=== PATIENT | female | born 1990 | race Caucasian/White ===

== ENCOUNTER → 2018-06-11 09:59 | Outpatient (CLI) | payer OTHER, SELFPAY ==
[2018-06-11 10:37] LABS: Add Manual Diff / Slide Review NO; Basophils Percent Auto 0.4 % (0-2); Eosinophils Percent Auto 0.8 % (2-4); Hematocrit 41.3 % (36-46); Hemoglobin 14.2 g/dL (12.0-16.0); Lymphocytes Percent Auto 24.2 % (25-40); Mean Corpuscular HGB Conc 34.3 % (30-36); Mean Corpuscular Volume 87.5 fL (80-100); Monocytes Percent Auto 6.5 % (3-14); Neutrophils Absolute Auto 3900 /uL (3000-5900); Neutrophils Percent Auto 68.1 % (50-75); Platelet Count 263 X10^3/uL (150-400); Red Blood Cell Count 4.72 X10^6/uL (4.0-5.2); Red Cell Distribution Width 13.1 % (11.6-14.8); White Blood Cell Count 5.7 X10^3/uL (4.5-11.0)
[2018-06-11 11:05] LABS: Alanine Aminotransferase 21 IU/L (9-52); Albumin 4.7 g/dL (3.5-5.0); Albumin Globulin Ratio 1.6 (1.0-2.8); Alkaline Phosphatase 52 U/L (38-126); Aspartate Aminotransferase 17 IU/L (14-36); Bilirubin Total 0.5 mg/dL (0.2-1.3); Blood Urea Nitrogen 12 mg/dL (7-17); Calcium 10.2 mg/dL (8.4-10.2); Carbon Dioxide 29 mmol/L (22-32); Chloride 102 mmol/L (98-107); Estimated Glomerular Filt Rate > 60.0 mL/min (>60); Globulin 2.9 g/dL (1.7-4.1); Glucose 101 mg/dL (70-100); HEMOLYSIS < 15 (0-50); Potassium 4.9 mmol/L (3.4-5.1); Sodium 143 mmol/L (137-145); Total Protein 7.6 g/dL (6.3-8.2)
[2018-06-11 11:24] LABS: Free T3, Triiodothyronine Free 3.36 pg/mL (2.77-5.27); Free T4, Direct Thyroxine 1.06 ng/dL (0.78-2.19)
[2018-06-11 11:38] LABS: Thyroid Stimulating Hormone 2.97 uIU/mL (0.47-4.68)
== END ==
PROVIDERS: PCP Internal Medicine; Visit Provider Internal Medicine
DX: N97.9 Female infertility, unspecified (principal)
CPT/HCPCS: 36415; 80053; 84439; 84443; 84481; 85025

== ENCOUNTER → 2018-07-25 12:43 | Outpatient (CLI) | payer OTHER, SELFPAY ==
[2018-07-25 14:14] LABS: Semen 30 min. Liquification? Yes; Sperm Count 1 X10^6mL
[2018-07-25 14:55] LABS: % Recovery 12 %; Final Volume 0.5 mL
== END ==
PROVIDERS: PCP Internal Medicine; Visit Provider Obstetrics & Gynecology
DX: N97.9 Female infertility, unspecified (principal)
CPT/HCPCS: 89261

== ENCOUNTER → 2018-08-25 12:21 | Outpatient (CLI) | payer OTHER, SELFPAY ==
[2018-08-25 13:22] LABS: Initial Volume 3.5 mL; Semen 30 min. Liquification? YES
== END ==
PROVIDERS: PCP Internal Medicine; Visit Provider Obstetrics & Gynecology
DX: N97.0 Female infertility associated with anovulation (principal)
CPT/HCPCS: 58323

== ENCOUNTER → 2019-03-21 09:54 | Outpatient (CLI) | payer OTHER, SELFPAY ==
[2019-03-21 10:39] LABS: HCG Quantitative /Beta subunit 97.07 mIU/mL
== END ==
PROVIDERS: Visit Provider Obstetrics & Gynecology Reproductive Endocrinology
DX: Z32.00 Encounter for pregnancy test, result unknown (principal)
CPT/HCPCS: 36415; 84702

== ENCOUNTER → 2019-03-23 09:05 | Outpatient (CLI) | payer OTHER, SELFPAY ==
[2019-03-23 09:50] LABS: HCG Quantitative /Beta subunit 266.74 mIU/mL
== END ==
PROVIDERS: Visit Provider Obstetrics & Gynecology Reproductive Endocrinology
DX: Z32.01 Encounter for pregnancy test, result positive (principal)
CPT/HCPCS: 36415; 84702

== ENCOUNTER → 2019-04-21 16:21 | Outpatient (CLI) | payer OTHER, SELFPAY ==
[2019-04-21 17:40] LABS: Add Manual Diff / Slide Review NO; Basophils Absolute Auto 0 /uL (0-100); Basophils Percent Auto 0.5 % (0-2); Eosinophils Absolute Auto 200 /uL (0-450); Eosinophils Percent Auto 2.1 % (2-4); Hematocrit 39.3 % (36-46); Hemoglobin 13.3 g/dL (12.0-16.0); Lymphocytes Absolute Auto 1600 /uL (1100-4500); Mean Corpuscular HGB Conc 33.9 % (30-36); Mean Corpuscular Hemoglobin 29.8 PG (26-34); Monocytes Absolute Auto 500 /uL (0-900); Monocytes Percent Auto 5.1 % (3-14); Neutrophils Absolute Auto 8200 /uL (1500-7000); Neutrophils Percent Auto 77.3 % (50-75); Platelet Count 264 X10^3/uL (150-400); Red Blood Cell Count 4.46 X10^6/uL (4.0-5.2); Red Cell Distribution Width 13.5 % (11.6-14.8); White Blood Cell Count 10.6 X10^3/uL (4.5-11.0)
[2019-04-21 17:49] LABS: Appearance Urine UA CLEAR; Bilirubin Urine UA NEGATIVE (NEGATIVE); Color Urine UA YELLOW; Glucose Urine UA NEGATIVE (Negative); Ketones Urine UA NEGATIVE (NEGATIVE); Leukocyte Esterase Urine UA NEGATIVE (NEGATIVE); Nitrite Urine UA NEGATIVE (Negative); Occult Blood Urine UA NEGATIVE (Negative); Protein Urine UA NEGATIVE (Negative); Specific Gravity Urine UA >=1.030 (1.000-1.035); Urobilinogen Urine UA 0.2 E.U./dL (0.2); pH Urine UA 5.5 (4.5-8.0)
[2019-04-21 18:34] LABS: Hepatitis B Surface Antigen NEGATIVE s/c (NEGATIVE); Rubella Antibody IgG 26.4 IU/mL (>15)
[2019-04-21 18:53] LABS: HIV 1 and 2 Antibody NEGATIVE (NEGATIVE); Hep C Virus Ab w/Reflex Quant NEGATIVE s/c (NEGATIVE)
[2019-04-23 13:17] LABS: RPR Screen Nonreactive (Nonreactive)
== END ==
PROVIDERS: PCP Obstetrics & Gynecology; Visit Provider Obstetrics & Gynecology
DX: Z34.81 Encounter for supervision of other normal pregnancy, first trimester (principal)
CPT/HCPCS: 36415; 80055; 81003; 86703; 86787; 86803; 86850; 86900; 86901; 87086

== ENCOUNTER → 2019-07-13 09:42 | Outpatient (CLI) | payer OTHER, MEDICAID, SELFPAY ==
--- NOTE | 2019-07-13 | DI.US.S_ITS ---
PROCEDURE: US OB >= 14 WEEKS FETUS INDICATIONS: ANATOMY SCAN OUTSIDE/PRIOR DATING DATA: Last menstrual period (LMP): 02/21/19. LMP-based estimated date of delivery (BHANU): 11/28/19. First dating scan (date and location): 04/21/19. Estimated date of delivery (BHANU) from first dating scan: 11/28/19. TECHNIQUE: Real-time scanning was performed of the fetus, with image documentation and biometric measurements. Endovaginal scanning: No COMPARISON: [facility], , OB <= 14 WEEKS FETUS, 04/08/2019, 12:08. [facility], PELVIC COMPLETE, 02/07/2016, 21:18. [facility], , OB <= 14 WEEKS FETUS, 05/22/2019, 10:42. [facility], OB >= 14 WEEKS FETUS, 04/21/2019, 16:06. FINDINGS: General: A single living intrauterine gestation is present. Presentation: Variable. Placenta: Placental position is anterior, without previa. Amniotic fluid index: 15.2 cm, normal range is 5-24 cm. heart rate: 150 beats per minute. Maternal cervical canal: 3.5 cm long. Normal lower limit is 2.5 cm. biometrics: Biparietal diameter: 20 weeks 1 day Head circumference: 20 weeks 1 day Abdominal circumference: 19 weeks 5 days Femur length: 20 weeks 1 day Estimated gestational age from initial scan: 20 weeks 2 days Composite gestational age from present scan: 20 weeks 2 days Estimated weight and percentile: 321 g; 26 percentile Measurement variability for biometric dating: +/- 7 days from 14 weeks to 15 weeks 6 days gestation, +/- 10 days from 16 weeks to 21 weeks 6 days gestation, +/- 2 weeks from 22 weeks to 27 weeks 6 days gestation, +/- 3 weeks for 28 weeks gestation or later. weight reference: 4500 g or EFW >90/95% is considered macrosomia or large for gestational age. EFW <10% is small for gestational age. EFW 5% or less is considered intra-uterine growth restriction. Anatomic survey: Neuro: Ventricles are non-dilated at 7 mm. Cisterna magna is normal at 5 mm. Cerebellum is normal in size and morphology. Nuchal skin fold: Normal at 3 mm. Face: Nose and lips are normal. Orbits and facial profile not well-visualized. Spine: No ultrasound evidence for spina bifida. Heart: 4-chambered heart is present. Ventricular outflow tracts are not well evaluated on this exam. Diaphragm: Diaphragm is intact. Stomach: Left-sided stomach is present. Kidneys: No alison hydronephrosis. Normal is less than 5 mm in 2nd trimester, less than 7 mm in 3rd trimester. Cord: Orthotopic insertion of the umbilical cord. Bladder: Normal in size. Extremities: All 4 extremities identified. IMPRESSION: 1. Single intrauterine gestation with heart rate of 150 beats per minute. 2. Facial profile, orbits, and ventricular outflow tracts were not well-seen on this exam. Attention on followup exams recommended. Dictated by: Lyle Burnette [facility] Interpreted: Cipriano Hale MD on 07/13/2019 at 11:10 Approved by: Cipriano Hale M.D. on 07/13/2019 at 23:33
== END ==
PROVIDERS: PCP Midwife; Visit Provider Midwife
DX: Z34.82 Encounter for supervision of other normal pregnancy, second trimester (principal)
CPT/HCPCS: 76811

== ENCOUNTER → 2019-09-11 07:17 | Outpatient (CLI) | payer OTHER, MEDICAID, SELFPAY ==
--- NOTE | 2019-09-11 | DI.US.S_ITS ---
PROCEDURE: US OB FOLLOW UP INDICATIONS: Facial profile,orbits,ventricular outflow OUTSIDE/PRIOR DATING DATA: Last menstrual period (LMP): 02/21/19. LMP-based estimated date of delivery (BHANU): 11/28/19. First dating scan (date and location): 04/21/19. Estimated date of delivery (BHANU) from first dating scan: 11/28/19.. TECHNIQUE: Real-time scanning was performed of the fetus, with image documentation and biometric measurements. Endovaginal scanning: No COMPARISON: [facility], OB >= 14 WEEKS FETUS, 07/13/2019, 9:58. FINDINGS: General: A single living intrauterine gestation is present. Presentation: Breech. Placenta: Placental position is anterior, without previa. Amniotic fluid index: 12.4 cm, normal range is 5-24 cm. heart rate: 137 beats per minute. Maternal cervical canal: 3.3 cm long. Normal lower limit is 2.5 cm. Estimated gestational age from initial scan: 28 weeks 6 days Normal appearance of the face, profile, 4 chamber heart and cardiac outflow tracts. IMPRESSION: 1. Single living IUP redemonstrated and today's exam demonstrating normal appearance of the face, profile, 4 chamber heart and cardiac outflow tracts. Dictated by: Lyle RIOS Interpreted: Shanice Mcnally MD on 09/11/2019 at 10:37 Approved by: Shanice Mcnally M.D. on 09/11/2019 at 13:52
== END ==
PROVIDERS: PCP Midwife; Visit Provider Midwife
DX: Z36.2 Encounter for other antenatal screening follow-up (principal); Z3A.28 28 weeks gestation of pregnancy
CPT/HCPCS: 76816

== ENCOUNTER 2019-10-27 12:47 | Outpatient (CLI) | payer OTHER, MEDICAID, SELFPAY ==
--- NOTE | 2019-10-27 13:08 | PM.OBTRLD ---
Visit Information Visit Information Date of evaluation: 10/27/19 On-call OB Provider: Chikis Guerrier Reason for Evaluation: Yes other Comments/Additional reasons for admission: 29yo at 35w3d who presented with vaginal bleeding. Pt reports that this afternoon after using the restroom she noticed significant dark red blood on the tissue, and in the toilet. There was some mucus and tissue intermixed with it. She did not have any bleeding on her panty liner at presentation, and no blood after urinating here. She denies any abdominal pain/cramping/contractions. No LOF. Her placenta is anterior without any previa. PFSH Social History marital status: Smoking Status: Never smoker alcohol intake: current substance use type: does not use Exam Narrative Exam Narrative: Gen: NAD, sitting comfortably in bed, appears well Abd: soft, gravid, nontender, nondistended Evaluation Evaluation Baseline heart rate: 145 Variability: Moderate (11-25) monitor accelerations: Present monitor decelerations: Absent Category of Tracing: I Cervical dilation (cm): 1 Cervical effacement (%): 20 station: -3 Diagnosis, Plan/Disposition Final Diagnosis (1) Vaginal bleeding: Current Visit: No Status: Acute Plan/Disposition Plan: No persistent bleeding here. FHT reassuring. Most likely due to old blood. Recommend continued monitoring at home. If recurrent bleeding necessitating pad, pt to return for repeat evaluation and would obtain u/s at that point. OB Disposition: home
[2019-10-27 13:43] LABS: Appearance Urine UA CLEAR; Bilirubin Urine UA NEGATIVE (NEGATIVE); Color Urine UA YELLOW; Glucose Urine UA NEGATIVE (Negative); Ketones Urine UA NEGATIVE (NEGATIVE); Leukocyte Esterase Urine UA NEGATIVE (NEGATIVE); Nitrite Urine UA NEGATIVE (Negative); Occult Blood Urine UA 3+ (Negative); Protein Urine UA NEGATIVE (Negative); Specific Gravity Urine UA <=1.005 (1.000-1.035); Urobilinogen Urine UA 0.2 E.U./dL (0.2)
[2019-10-27 13:44] LABS: pH Urine UA 6.5 (4.5-8.0)
[2019-10-27 13:49] LABS: RBC Urine 10-30/HPF (0-5/HPF); Squamous Epithelial Cell Urine 10-30 /HPF (0-5/HPF); WBC Urine 0-1/HPF (0-5/HPF)
[2019-10-27 13:50] LABS: Bacteria Urine Moderate (10-30); Culture Indicated Urine Cult Not Indicated
== END 2019-10-27 13:58 | disposition home or self-care (01) ==
LOC: LABOR 13:27 → OB 10-28 13:31
PROVIDERS: PCP Midwife; Visit Provider Family Medicine
DX: O46.93 Antepartum hemorrhage, unspecified, third trimester (principal); Z3A.35 35 weeks gestation of pregnancy
CPT/HCPCS: 59025; 81001; G0378; G0379

== ENCOUNTER 2019-10-30 10:41 | Inpatient (IN) | payer OTHER, MEDICAID, SELFPAY ==
--- NOTE | 2019-10-30 10:44 | DI.US.S_ITS ---
PROCEDURE: US OB LIMITED INDICATIONS: ACTIVE BLEEDING OUTSIDE/PRIOR DATING DATA: Last menstrual period (LMP): 02/21/19. LMP-based estimated date of delivery (BHANU): 11/28/19. First dating scan (date and location): 04/21/19. Estimated date of delivery (BHANU) from first dating scan: 11/29/19. TECHNIQUE: Real-time scanning was performed of the fetus, with image documentation and biometric measurements. Endovaginal scanning: Not performed COMPARISON: [facility], OB FOLLOW UP, 09/11/2019, 7:33. [facility], OB >= 14 WEEKS FETUS, 07/13/2019, 9:58. [facility] OB <= 14 WEEKS FETUS, 05/22/2019, 10:42. [facility], OB >= 14 WEEKS FETUS, 04/21/2019, 16:06. [facility], OB <= 14 WEEKS FETUS, 04/08/2019, 12:08. FINDINGS: General: A single living intrauterine gestation is present. Presentation: Vertex. Placenta: Placental position is anterior, without previa. Amniotic fluid index: 13.5 cm, normal range is 5-24 cm. heart rate: 168 beats per minute. Estimated gestational age from initial scan: 35 weeks 6 days Other: Not applicable. IMPRESSION: Single living intrauterine fetus in vertex presentation. Normal GABRIELLA Grossly unremarkable appearance of the placenta Dictated by: Steve Vargas M.D. on 10/30/2019 at 17:40 Approved by: Steve Vargas M.D. on 10/30/2019 at 17:43
--- NOTE | 2019-10-30 13:33 | PM.OBHP.1 ---
OB HPI Date/Time Date of admission: 10/30/19 Date Patient Seen: 10/30/19 Time Patient Seen: 12:45 History of Present Condition Chief complaint: vaginal bleeding : 2 Para: 1 Estimated Date of Delivery: 11/28/19 Estimated Gestational Age (weeks): 35w6d Narrative: Kenna Urbina is a 29 year old at 35 weeks and 6 days gestation with vaginal bleeding with clots this morning. She was seen in triage 3 days ago for vaginal bleeding which resolved prior to arrival in the center. Today shortly after waking she had a gush of blood down her legs then 3 golf ball size clots. No associated pain or contractions. She came to the center shortly after this. Good movement. has been managed by line rider Stephany Fuller and uncomplicated to date with normal ultrasounds and labs. is the product of IVF. History of Present care: good care, initiated at week # (6) and number of visits (11) Dating criteria: LMP confirmed by 1st trimester US (IVF transfer) Ultrasounds: normal 1st trimester US and normal mid trimester US Obstetrical complications: none Medical complications: none Preadmission Labs Blood type: A (+) positive -: Antibody screen: negative, GBS status: positive, HBsAG: negative, HIV: negative and RPR/VDLR: negative -: Chlamydia screen: not detected and Gonorrhea screen: not detected -: Rubella: immune and Varicella: immune HCT: 39.3 HCAB: negative PAP: Normal Cell-free DNA: Normal XY 1 hr GTT: 86 Prior (ies) History: Spontaneous vaginal delivery at 39 weeks and 2 days to a 7 lb 9 oz male. Delivered at the [facility] with Stephany Fuller. Evaluation Evaluation Baseline heart rate: 140 Variability: Moderate (11-25) monitor accelerations: Present monitor decelerations: Absent Cervical dilation (cm): 1 Cervical effacement (%): 50 station: -3 [facility] Medical History History of recurrent ear infection (Chronic ~1991) Surgical History Anesthesia (Resolved) History of appendectomy (Resolved ~11/2002) History of myringotomy (Resolved ~12/1992) Plantar warts (Resolved ~2006) [place] teeth removed (Resolved ~10/2011) Family History Mother Fibromyalgia Anxiety and depression Grandfather Heart disease Hypertension Hyperlipidemia Anxiety Stroke Grandmother Fibromyalgia Diabetes mellitus Grandfather Diabetes mellitus Heart disease Hyperlipidemia Grandmother Hyperlipidemia Social History marital status: Smoking Status: Never smoker alcohol intake: current substance use type: does not use Meds Home Medications and Allergies Home Medications Medication Instructions Recorded Confirmed Type prenat.vits,cami,[id number] 1 tab PO DAILY 04/08/19 10/30/19 History Allergies Allergy/AdvReac Type Severity Reaction Status Date / Time No Known Drug Allergies Allergy Verified 04/08/19 11:30 Review of Systems Constitutional Constitutional: Denies fever(s) Respiratory Respiratory: Denies cough Gastrointestinal Gastrointestinal: Denies abdominal pain, Denies nausea and Denies vomiting Genitourinary Genitourinary: Reports as per HPI Exam Vital Signs (past 8 hours): Temp 36.4 BP 134/86 P 97 Const General: healthy appearing and comfortable HENMT Head: normal to inspection Ears: hearing grossly normal bilaterally Nose: external nose normal Face and sinus: normal facial exam Mouth: oral mucosae normal Eyes General: appearance normal, both eyes and all related structures Neck Neck: normal visual inspection Resp Effort & Inspection: normal respiratory effort Auscultation: clear to auscultation bilaterally Cardio Rate: regular rate Rhythm: regular rhythm Heart Sounds: no murmurs GI Other: Gravid External Female Exam: external appearance normal Speculum Exam - Vagina: vaginal bleeding (Small amount of dark blood in vagina) Speculum Exam - Cervix: cervical os open OB/External & Speculum: cervical os open and vaginal bleeding (Small amount of dark blood in vagina) Manual OB Exam: dilated 1, effaced 50% and station high Presentation: vertex Estimated Weight (lbs): 6 Skin General: no rashes or lesions noted Extrem General: normal to inspection and edema (1+ bilaterally) Objective Labs Result Diagrams: 10/30/19 13:40 Assessment and Plan Assessment and Plan Assessment and Plan narrative: 29 year old at 35+6 weeks gestation with bright red vaginal bleeding with clots this morning. Bleeding is scant now and FHT reactive. No obvious source of bleeding on exam or US so presumed placental abruption. This is her second episode of bleeding this week. She was seen in triage 3 days ago, monitoring then sent home since bleeding stopped. Will admit for observation, CBC, type and screen and bethamethasone for lung maturity. Discussed the possibility of an emergency with patient should bleeding increase significantly or FHT are not reassuring.
[2019-10-30 14:05] LABS: Add Manual Diff / Slide Review NO; Basophils Absolute Auto 0 /uL (0-100); Basophils Percent Auto 0.2 % (0-2); Eosinophils Absolute Auto 0 /uL (0-450); Eosinophils Percent Auto 0.2 % (2-4); Hematocrit 35.5 % (36-46); Hemoglobin 12.5 g/dL (12.0-16.0); Lymphocytes Absolute Auto 1100 /uL (1100-4500); Mean Corpuscular HGB Conc 35.3 % (30-36); Mean Corpuscular Hemoglobin 29.9 PG (26-34); Mean Corpuscular Volume 84.8 fL (80-100); Monocytes Absolute Auto 400 /uL (0-900); Monocytes Percent Auto 4.5 % (3-14); Neutrophils Absolute Auto 6500 /uL (1500-7000); Neutrophils Percent Auto 81.1 % (50-75); Platelet Count 238 X10^3/uL (150-400); Red Blood Cell Count 4.18 X10^6/uL (4.0-5.2); Red Cell Distribution Width 13.9 % (11.6-14.8); White Blood Cell Count 8.1 X10^3/uL (4.5-11.0)
[2019-10-30] MEDS: BETAMETHASONE 30 MG/5 ML MDV 12 MG IM (14:22)
[2019-10-30 15:50] LABS: Strep Grp B PCR POS for Grp B Strep
[2019-10-31 07:31] VITALS: BP 120/74; PULSE 88; RESP 16; TEMP 36.8
--- NOTE | 2019-10-31 08:01 | PM.OBPNLAB ---
Date/Time Date Patient Seen: 10/31/19 Time Patient Seen: 08:01 Pain Control Comments: Patient continued to have small amounts of pink and sometimes red discharge with wiping only overnight. No clots or alison bright red blood. She has felt crampy and some contractions, reminds her of early labor with her first. Otherwise no complaints other than little sleep overnight. Status Heart Rate Baseline: 120 Monitor Accelerations: Present Monitor Decelerations: Absent Monitor Variability: Moderate Assessment and Plan Comments: Continue observation for presumed partial abruption. FHT reassuring. Bleeding has slowed significantly but has not stopped. Patient will receive her second dose of betamethsone night. Will monitor at least another night for ongoing bleeding.
[2019-10-31] MEDS: BETAMETHASONE 30 MG/5 ML MDV 12 MG IM (14:14)
[2019-10-31] MEDS: CALCIUM CARBONATE 500 MG TAB PO (23:17)
--- NOTE | 2019-11-01 06:57 | P.DS_ITS ---
History of Present Illness History of Present Illness Date Patient Seen: 11/01/19 Time Patient Seen: 06:57 Chief complaint: Vaginal bleeding Narrative: Kenna Urbina is a 29 year old at 36 weeks and 1 days gestation with vaginal bleeding with clots the morning of admission. She was seen in triage 3 days prior to admission with vaginal bleeding which resolved before she arrived in the center. Shortly after waking the day of admission she had a gush of blood down her legs then 3 golf ball size clots. No associated pain or contractions. Good movement. has been managed by artillery meteorological man Stephany Fuller and uncomplicated to date with normal ultrasounds and labs. is the product of IVF. Denies any h/o drug use. Discharge Providers Provider Date of admission: 10/30/19 10:41 Discharge Date: 11/01/19 Primary care physician: Stephany Fuller LM Discharge provider: Yenifer Valentino DO Summary Hospital Course Discharge Diagnosis: Vaginal bleeding in 36 weeks of Placental abruption Hospital Course: Patient was admitted for observation of bleeding which was light through her stay. At most she had slight light bleeding with wiping only. US did not show placenta previa or abruption though no other source of bleeding so presumed small abruption. She reported mild intermittent contractions and denied abdominal pain. FHT were monitored throughout her hospitalization (approximately 48 hours) and reactive without any sign of distress. She received two doses of betamethsone for lung maturity given 36 weeks gestation. She will follow up in clinic with Dr. Valentino in two days. Discussed the importance of pelvic rest, bed rest and kick counts. She is well aware to return to the center for increased bleeding, pain, leaking of fluid or regular contractions and to call with any concerns as well. Status at Discharge Functional status at discharge: independent ambulation Overall status at discharge: patient is back to baseline Time Spent with Patient Time spent: Less than 30 minutes Exam Vital Signs (past 8 hours): Temp 36.4 BP 97/56 HR 82 General: Well-appearing, NAD, comfortable CV: RRR, no murmur Lungs: CTAB Abdomen: Gravid, nontender Ext: Trace edema bilaterally Objective Labs Result Diagrams: 10/30/19 13:40 Discharge Plan Discharge Plan Patient Disposition: Home Discharge orders & Medications Prescriptions: Continued prenat.vits,cami,[id number] tablet 1 tab PO DAILY RF: 0 Follow up/Referrals: Stephany Fuller, DAHIANA [Primary Care Provider] - Yenifer Valentino DO [Physician] - 11/03/19 12:00 pm (Clinic will call you to schedule with Dr. Valentino) Visit Report/Discharge Packet Visit Report Forms: Patient Portal/API, Stroke Signs & Symptoms Discharge Data Primary Care Provider: Stephany Fuller Attending Provider: Yenifer Valentino Admit Date/Time: 10/30/19 10:41
[2019-11-01] MEDS: DOCUSATE 250 MG CAPSULE PO (10:00)
== END 2019-11-01 10:14 | disposition home or self-care (01) | DRG 833 ==
PROVIDERS: Admitting Provider Family Medicine; PCP Midwife; Visit Provider Family Medicine
DX: O45.93 Premature separation of placenta, unspecified, third trimester (principal); Z3A.36 36 weeks gestation of pregnancy; O99.820 Streptococcus B carrier state complicating pregnancy
CPT/HCPCS: 36415; 76815; 85025; 86850; 86900; 86901; 87653; 99222; 99232; 99238; G0378; G0379; J0702

== ENCOUNTER 2019-11-06 10:03 | Outpatient (CLI) | payer OTHER, MEDICAID, SELFPAY ==
--- NOTE | 2019-11-06 11:06 | P.TNLD_ITS ---
Visit Information Visit Information Date of evaluation: 11/06/19 Primary OB Provider: Yenifer Valentino Reason for Evaluation: Yes non-stress test non-stress test reason: other (Vaginal bleeding, not for the past several days) Vital Signs Vital Signs: T 36.3 BP 125/78 HR 100 PFSH Medical History History of recurrent ear infection (Chronic ~1991) Surgical History Anesthesia (Resolved) History of appendectomy (Resolved ~11/2002) History of myringotomy (Resolved ~12/1992) Plantar warts (Resolved ~2006) [place] teeth removed (Resolved ~10/2011) Family History Mother Fibromyalgia Anxiety and depression Grandfather Heart disease Hypertension Hyperlipidemia Anxiety Stroke Grandmother Fibromyalgia Diabetes mellitus Grandfather Diabetes mellitus Heart disease Hyperlipidemia Grandmother Hyperlipidemia Social History marital status: Smoking Status: Never smoker alcohol intake: current substance use type: does not use Evaluation Evaluation Baseline heart rate: 150 Variability: Moderate (11-25) monitor accelerations: Present monitor decelerations: Absent Contraction Frequency (minutes): 0 Diagnosis, Plan/Disposition Plan/Disposition Plan: Reactive NST, no recurrence of vaginal bleeding. Follow up as scheduled next week. OB Disposition: home
== END 2019-11-06 11:24 | disposition home or self-care (01) ==
LOC: LABOR 11:06 → OB 11-13 11:15
PROVIDERS: PCP Family Medicine; Visit Provider Family Medicine
DX: O46.93 Antepartum hemorrhage, unspecified, third trimester (principal); Z3A.36 36 weeks gestation of pregnancy
CPT/HCPCS: 59025; G0378; G0379

== ENCOUNTER 2019-11-13 10:05 | Outpatient (CLI) | payer OTHER, MEDICAID, SELFPAY ==
--- NOTE | 2019-11-13 10:46 | PM.OBTRLD ---
Visit Information Visit Information Date of evaluation: 11/13/19 Primary OB Provider: Yenifer Valentino Reason for Evaluation: Yes non-stress test Comments/Additional reasons for admission: Vaginal bleeding at 36 weeks, has not recurred. Vital Signs Vital Signs: T 35.9 BP 124/82 P 103 PFSH Social History marital status: Smoking Status: Never smoker alcohol intake: current substance use type: does not use Evaluation Evaluation Baseline heart rate: 155 Variability: Moderate (11-25) monitor accelerations: Present monitor decelerations: Absent Category of Tracing: I Diagnosis, Plan/Disposition Final Diagnosis (1) Vaginal bleeding: Current Visit: No Status: Acute (2) 37 weeks gestation of : Current Visit: Yes Status: Acute Plan/Disposition Plan: No recurrence of vaginal bleeding. NST reactive. Follow up as scheduled next week. OB Disposition: home
== END 2019-11-13 10:50 | disposition home or self-care (01) ==
LOC: LABOR 11:27 → OB 11-16 13:22
PROVIDERS: PCP Family Medicine; Visit Provider Family Medicine
DX: O46.93 Antepartum hemorrhage, unspecified, third trimester (principal); Z3A.37 37 weeks gestation of pregnancy
CPT/HCPCS: 59025; G0378; G0379

== ENCOUNTER 2019-11-24 07:08 | Inpatient (IN) | payer OTHER, MEDICAID, SELFPAY ==
[2019-11-24 08:22] LABS: Add Manual Diff / Slide Review NO; Basophils Absolute Auto 0 /uL (0-100); Basophils Percent Auto 0.2 % (0-2); Eosinophils Absolute Auto 100 /uL (0-450); Eosinophils Percent Auto 0.8 % (2-4); Hematocrit 34.6 % (36-46); Lymphocytes Absolute Auto 1200 /uL (1100-4500); Lymphocytes Percent Auto 14.6 % (25-40); Mean Corpuscular HGB Conc 34.6 % (30-36); Mean Corpuscular Hemoglobin 29.5 PG (26-34); Mean Corpuscular Volume 85.2 fL (80-100); Monocytes Absolute Auto 600 /uL (0-900); Monocytes Percent Auto 7.6 % (3-14); Neutrophils Absolute Auto 6300 /uL (1500-7000); Neutrophils Percent Auto 76.8 % (50-75); Platelet Count 230 X10^3/uL (150-400); Red Blood Cell Count 4.06 X10^6/uL (4.0-5.2); Red Cell Distribution Width 14.4 % (11.6-14.8); White Blood Cell Count 8.2 X10^3/uL (4.5-11.0)
--- NOTE | 2019-11-24 08:24 | PM.OBHP.1 ---
OB HPI Date/Time Date of admission: 11/24/19 Date Patient Seen: 11/24/19 Time Patient Seen: 08:15 History of Present Condition Chief complaint: INDUCTION : 2 Para: 1 Estimated Date of Delivery: 11/28/19 Estimated Gestational Age (weeks): 39w3d Narrative: Kenna Urbina is a 29 year old at 39 weeks and 3 days here for induction of labor due to vaginal bleeding which began at 35 weeks. She was admitted and monitored for over 48 hours due to vaginal bleeding and received steroids for lung maturity. Bleeding stabilized and did not recur so she was discharged home. Bleeding felt to be due to partial abruption as no other source was found. Ultrasound and nonstress testing was reassuring prior to discharge. She has been followed closely in the clinic without recurrence of bleeding. She saw equal employment opportunity officer Stephany Fuller for the until the vaginal bleeding occurred, at which point she transferred care so she could deliver in the hospital. is the product of IVF though otherwise has been uncomplicated with normal labs and ultrasounds. Indications Indication for induction OB: other (Vaginal bleeding antepartum) History of Present care: good care, initiated at week # (6), number of visits (14) and pounds weight gain Dating criteria: LMP confirmed by 1st trimester US (IVF transfer) Ultrasounds: normal 1st trimester US and normal mid trimester US Obstetrical complications: other (Bleeding at 35 weeks, presumed partial abruption) Medical complications: none Preadmission Labs Blood type: A (+) positive -: Antibody screen: negative, GBS status: positive, HBsAG: negative, HIV: negative and RPR/VDLR: negative -: Chlamydia screen: not detected and Gonorrhea screen: not detected -: Rubella: immune and Varicella: immune HCT: 39.3 HCAB: negative PAP: Normal Cell-free DNA: Normal XY 1 hr GTT: 86 Prior (ies) History: Spontaneous vaginal delivery at 39 weeks and 2 days to a 7 lb 9 oz male. Delivered at the [facility] with Stephany Fuller. Evaluation Evaluation Baseline heart rate: 140 Variability: Moderate (11-25) monitor accelerations: Present monitor decelerations: Absent Uterine Contraction Intensity: Mild Cervical dilation (cm): 3 Cervical effacement (%): 60 station: -2 Laboratory results: Laboratory Tests 11/24/19 08:00 WBC 8.2 RBC 4.06 Hgb 12.0 Hct 34.6 L MCV 85.2 MCH 29.5 MCHC 34.6 RDW 14.4 Plt Count 230 Neut % (Auto) 76.8 H Lymph % (Auto) 14.6 L [place] % (Auto) 7.6 Eos % (Auto) 0.8 L Baso % (Auto) 0.2 Neut # (Auto) 6300 Lymph # (Auto) 1200 [place] # (Auto) 600 Eos # (Auto) 100 Baso # (Auto) 0 PFSH Medical History History of recurrent ear infection (Chronic ~1991) Surgical History Anesthesia (Resolved) History of appendectomy (Resolved ~11/2002) History of myringotomy (Resolved ~12/1992) Plantar warts (Resolved ~2006) [place] teeth removed (Resolved ~10/2011) Family History Mother Fibromyalgia Anxiety and depression Grandfather Heart disease Hypertension Hyperlipidemia Anxiety Stroke Grandmother Fibromyalgia Diabetes mellitus Grandfather Diabetes mellitus Heart disease Hyperlipidemia Grandmother Hyperlipidemia Social History marital status: Smoking Status: Never smoker alcohol intake: current substance use type: does not use Meds Home Medications and Allergies Home Medications Medication Instructions Recorded Confirmed Type prenat.vits,cami,hga-[id number]-[id number] 1 tab PO DAILY 04/08/19 11/16/19 History Allergies Allergy/AdvReac Type Severity Reaction Status Date / Time No Known Drug Allergies Allergy Verified 11/16/19 11:46 Review of Systems Constitutional Constitutional: Denies fatigue and Denies fever(s) Cardiovascular Cardiovascular: Denies shortness of breath Respiratory Respiratory: Denies cough and Denies dyspnea Gastrointestinal Gastrointestinal: Denies abdominal pain and Denies change in bowel habits Genitourinary Genitourinary: Denies vaginal discharge, Denies vaginal odor and Denies pelvic pain Endocrine Endocrine: Denies fatigue Exam Vital Signs (past 8 hours): Blood pressure 135/84 heart rate 90 Const General: healthy appearing and comfortable [facility] Head: normal to inspection Ears: hearing grossly normal bilaterally Nose: external nose normal Face and sinus: normal facial exam Mouth: oral mucosae normal Eyes General: appearance normal, both eyes and all related structures Neck Neck: normal visual inspection Resp Effort & Inspection: normal respiratory effort Auscultation: clear to auscultation bilaterally Cardio Rate: regular rate Rhythm: regular rhythm Heart Sounds: no murmurs GI Other: Gravid External Female Exam: external appearance normal Manual OB Exam: dilated 3, effaced (60) and station -2 Presentation: vertex Estimated Weight (lbs): 7 Back/Spine/Pelvis Back: normal to inspection Skin General: no rashes or lesions noted Extrem General: normal to inspection and edema (1+ bilateral) Objective Labs Result Diagrams: 11/24/19 08:00 Labs: Laboratory Results - last 24 hr 11/24/19 08:00 WBC 8.2 RBC 4.06 Hgb 12.0 Hct 34.6 L MCV 85.2 MCH 29.5 MCHC 34.6 RDW 14.4 Plt Count 230 Neut % (Auto) 76.8 H Lymph % (Auto) 14.6 L [place] % (Auto) 7.6 Eos % (Auto) 0.8 L Baso % (Auto) 0.2 Neut # (Auto) 6300 Lymph # (Auto) 1200 [place] # (Auto) 600 Eos # (Auto) 100 Baso # (Auto) 0 Assessment and Plan Assessment and Plan Assessment and Plan narrative: 29-year-old at 39 weeks and 3 days gestation here for induction due to vaginal bleeding which began at 35 weeks. She received betamethasone for lung maturity and was monitored in the center for over 48 hours with reassuring heart tones without recurrence of bleeding. She has been followed closely over the last 3 weeks and requests induction due to high anxiety about vaginal bleeding. Lacy score of 7 today. Plan Pitocin per protocol Penicillin for GBS prophylaxis Nitrous oxide per protocol if desires, patient would like to avoid an epidural Anticipate
[2019-11-24] MEDS: OXYTOCIN PREMIX 30 UNIT/500 ML PLAST..BAG IV (08:37)
[2019-11-24] MEDS: LACTATED RINGERS 1,000 ML 100 ML IV (08:38)
[2019-11-24] MEDS: PENICILLIN G POTASSIUM 5,000,000 UNIT in DEXTROSE 5% IN WATER 250 ML IV (08:39)
[2019-11-24 10:17] VITALS: BP 128/65
[2019-11-24] MEDS: PENICILLIN G POTASSIUM 3,000,000 UNIT/50 ML FROZ.PIGGY 100 UNIT IV ×2 (12:36→16:28)
--- NOTE | 2019-11-24 17:08 | PM.OBPNLAB ---
Date/Time Date Patient Seen: 11/24/19 Time Patient Seen: 17:08 Pain Control Pain control: tolerating well Comments: Patient rates contraction pain as 6/10. Coping well. Pelvic Exam Dilation (cm): 4 Effacement (%): 75 station: -2 Amniotic membrane status: Ruptured (AROM clear fluid) Contractions Pitocin rate (mU/min): 23 Contraction frequency (min): 3 Contraction intensity: Moderate Status status: Category ll Heart Rate Baseline: 140 Monitor Accelerations: Present Monitor Decelerations: Variable (intermittent) Monitor Variability: Moderate Assessment and Plan Assessment: induction ongoing Plan: continuous present management Comments: Patient getting more uncomfortable. AROM with clear fluid. Continue pitocin. Anticipate .
--- NOTE | 2019-11-24 20:01 | PM.OBPRVD ---
Labor & Delivery Delivery date: 11/24/19 Induction method: per pitocin protocol Delivery augmentation: rupture of membranes Delivery monitor: external uterine Route of delivery: L&D Laceration Description: Vaginal - 2nd Degree Estimated blood loss (mL): 300 Anesthesia type: None Narrative: Patient is a 29-year-old G2 now P2 at 39 weeks in 3 days who gave on 11/24/19 at 19:31. BHANU: 11/28/19 Hospital problems: 39 weeks of GBS positive Patient was admitted and started on Pitocin protocol for induction for vaginal bleeding antepartum. Active labor began at 4:00 p.m.. Artificial rupture of membranes at 4:55 p.m. with clear fluid. Patient became very painful and difficult to monitor so Pitocin was shut off. Patient continued to progress spontaneously with reassuring heart tones. Patient briefly tried nitrous oxide for pain control but did not tolerate it. She was complete at 7:21 p.m. and delivered a vigorous male at 7:31 p.m.. was vertex and OA. He was immediately placed on mother's abdomen. Cord was clamped and cut after 1 minute delay. Apgars were 8 and 9. Cord was found to have a true knot. Placenta delivered at 19:37 after active management and appeared intact with a three-vessel cord. Pitocin given after delivery of placenta. A short second-degree vaginal laceration was repaired in the usual fashion with 4 0 Vicryl. Hemostasis achieved. Fundus firm at umbilicus after delivery. EBL 300 mL Needle and sponge counts were correct. The vagina was inspected and no items were left in situ. Patient was doing well with Rodríguez, her and at bedside. [place] Baby 1: gender: Male Presentation: vertex Placenta delivery description: Spontaneous cord vessel description: True Knot score (1 min): 8 score (5 min): 9
[2019-11-25 07:10] LABS: Hematocrit 26.1 % (36-46); Hemoglobin 9.1 g/dL (12.0-16.0)
[2019-11-25] MEDS: PRENATAL VIT,CALC/IRON/FOLIC 1 TABLET 1 TAB PO (09:22)
[2019-11-25] MEDS: DOCUSATE 100 MG CAPSULE PO (09:22)
[2019-11-25] MEDS: IBUPROFEN 600 MG TABLET PO ×2 (09:22→16:25)
--- NOTE | 2019-11-25 10:05 | PM.OBDS.1 ---
Discharge Providers Provider Date of admission: 11/24/19 07:08 Discharge Date: 11/25/19 Primary care physician: Yenifer Valentino DO Consults: 11/25/19 20:00 Consult to Traction Power Engineer Routine Comment: Discharge provider: Yenifer Valentino DO Summary Hospital Course Date Patient Seen: 11/25/19 Time Patient Seen: 09:45 Procedures: Spontaneous vaginal delivery Hospital Course: Patient is a 29-year-old G2 now P2 after spontaneous vaginal delivery at 39 weeks and 3 days gestation on 11/24/19. Patient was brought in for Pitocin induction due to vaginal bleeding at 35 weeks which resolved. She progressed well with Pitocin and artificial rupture of membranes and received adequate GBS prophylaxis. She went on to deliver a vigorous male infant. A short second-degree vaginal laceration was repaired in the usual fashion. course uncomplicated. Breast-feeding going well. Patient was ambulating, eating, voiding and passing flatus. Bleeding was heavier after delivery and lightening up the time of discharge. H&H noted to be low though not low enough for blood transfusion. Patient will discharge with iron supplementation. Patient advised to call for fevers, bleeding through more than a pad an hour or severe pain. Follow-up for 6 week check or sooner if needed. Peripartum Data Infant Delivery Method: Natural Vaginal Laceration description: Vaginal - 2nd Degree complications: none [place] 1: Gender: Male Disposition of : home Discharge Diagnosis (1) Spontaneous vaginal delivery: Status: Acute (2) 39 weeks gestation of : Status: Acute (3) Positive GBS test: Status: Acute (4) Acute blood loss anemia: Status: Acute Time Spent with Patient Time attestation: Total time spent providing and/or coordinating discharge services: Objective Labs Result Diagrams: 11/25/19 06:30 Labs: Laboratory Results - last 24 hr 11/25/19 06:30 Hgb 9.1 L Hct 26.1 L Exam Vital Signs (past 8 hours): Temperature 98.6 blood pressure 119/70 heart rate 62 respirations 16 General: Awake and alert, no acute distress. HEENT: NCAT, EOMI, moist oral mucosa CV: Regular rate and rhythm, no murmurs, rubs or gallops Lungs: CTAB, no wheezes, rales, or rhonchi Abdomen: Soft, nontender; bowel tones active; uterus firm 1 cm below umbilicus Extremities: Warm, 1+ edema bilaterally, 2+ pedal pulses bilaterally Discharge Plan Discharge Plan Patient Disposition: Home Discharge orders & Medications Prescriptions: New docusate sodium [DOK] 100 mg Capsule 100 mg PO DAILY Qty: 30 RF: 0 ibuprofen 600 mg Tablet 600 mg PO Q6HR PRN (Reason: Pain, Mild (1-3)) Qty: 30 RF: 0 ferrous gluconate 324 mg (37.5 mg iron) tablet 324 mg PO DAILY Qty: 30 RF: 0 Continued prenat.vits,cami,lpl-gyoz-obesh tablet 1 tab PO DAILY RF: 0 Follow up/Referrals: Yenifer Valentino DO [Primary Care Provider] - Visit Report/Discharge Packet Stand Alone Forms: Discharge: Care Visit Report Forms: Patient Portal/API, Stroke Signs & Symptoms Discharge Data Primary Care Provider: Yenifer Valentino Discharges patient from system. Discharge Date/Time: 11/25/19 20:29
[2019-11-25 19:47] VITALS: BP 124/82; PULSE 101; RESP 16; TEMP 37.1
== END 2019-11-25 20:29 | disposition home or self-care (01) | DRG 806 ==
PROVIDERS: Admitting Provider Family Medicine; PCP Family Medicine; Visit Provider Family Medicine
DX: O46.8X3 Other antepartum hemorrhage, third trimester (principal); D62 Acute posthemorrhagic anemia; Z37.0 Single live birth; Z3A.39 39 weeks gestation of pregnancy; O70.1 Second degree perineal laceration during delivery; O99.824 Streptococcus B carrier state complicating childbirth; O69.2XX0 Labor and delivery complicated by other cord entanglement, with compression, not applicable or unspecified
CPT/HCPCS: 36415; 59050; 59410; 85014; 85018; 85025; 86850; 86900; 86901; G0379; J2540; J2590

== ENCOUNTER → 2019-12-02 13:21 | Outpatient (CLI) | payer OTHER, MEDICAID, SELFPAY | PROVIDERS: PCP Family Medicine; Visit Provider Physician Assistant | DX: R30.0 Dysuria (principal) | CPT/HCPCS: 87086 ==

== ENCOUNTER → 2021-04-12 12:28 | Outpatient (CLI) | payer OTHER, SELFPAY ==
[2021-04-12 13:36] LABS: Add Manual Diff / Slide Review NO; Basophils Absolute Auto 0 /uL (0-100); Basophils Percent Auto 0.4 % (0-2); Eosinophils Absolute Auto 0 /uL (0-450); Eosinophils Percent Auto 0.7 % (2-4); Hematocrit 39.6 % (36-46); Hemoglobin 13.5 g/dL (12.0-16.0); Lymphocytes Absolute Auto 1200 /uL (1100-4500); Lymphocytes Percent Auto 19.1 % (25-40); Mean Corpuscular HGB Conc 34.1 % (30-36); Mean Corpuscular Hemoglobin 29.9 PG (26-34); Mean Corpuscular Volume 87.9 fL (80-100); Monocytes Absolute Auto 400 /uL (0-900); Neutrophils Absolute Auto 4700 /uL (1500-7000); Neutrophils Percent Auto 73.8 % (50-75); Platelet Count 280 X10^3/uL (150-400); Red Blood Cell Count 4.51 X10^6/uL (4.0-5.2); Red Cell Distribution Width 13.5 % (11.6-14.8); White Blood Cell Count 6.4 X10^3/uL (4.5-11.0)
[2021-04-12 14:23] LABS: Vitamin D 25 Hydroxy (D3) 39.9 ng/mL (30.0-100.0)
[2021-04-12 14:32] LABS: Hepatitis B Surface Antigen NEGATIVE s/c (NEGATIVE)
[2021-04-12 14:33] LABS: Rubella Antibody IgG 26.4 IU/mL (>15)
[2021-04-12 14:36] LABS: Thyroid Stimulating Hormone 2.53 uIU/mL (0.47-4.68)
[2021-04-12 14:51] LABS: HIV 1 & 2 Ab/Ag 4th Gen Combo NEGATIVE (NEGATIVE); Hep C Virus Ab w/Reflex Quant NEGATIVE s/c (NEGATIVE)
[2021-04-13 07:22] LABS: RPR Screen Non Reactive (Non Reactive)
== END ==
PROVIDERS: PCP Family Medicine; Referring Provider Obstetrics & Gynecology Reproductive Endocrinology; Visit Provider Obstetrics & Gynecology Reproductive Endocrinology
DX: Z13.0 Encounter for screening for diseases of the blood and blood-forming organs and certain disorders involving the immune mechanism (principal); Z11.59 Encounter for screening for other viral diseases; Z11.4 Encounter for screening for human immunodeficiency virus [HIV]; Z11.3 Encounter for screening for infections with a predominantly sexual mode of transmission; Z13.29 Encounter for screening for other suspected endocrine disorder; Z01.83 Encounter for blood typing; Z01.84 Encounter for antibody response examination; Z13.21 Encounter for screening for nutritional disorder
CPT/HCPCS: 36415; 82306; 84443; 85025; 86592; 86762; 86803; 86850; 86900; 86901; 87340; 87389

== ENCOUNTER → 2021-04-28 07:03 | Outpatient (CLI) | payer OTHER, SELFPAY ==
--- NOTE | 2021-04-28 | DI.US.S_ITS ---
PROCEDURE: US PELVIC COMPLETE INDICATIONS: INFERTILITY TECHNIQUE: Real-time scanning was performed of the pelvic organs, with image documentation. Additional endovaginal scanning was necessary due to incomplete visualization of the adnexal and endometrial structures by transabdominal scanning. COMPARISON: [facility], , PELVIC COMPLETE, 02/07/2016, 21:18. FINDINGS: Uterus: Uterus is normal in size at 8.2 x 4.2 x 5.7 cm. The endometrium measures six mm in combined thickness. Ovaries: The right ovary measures 3.1 x 1.7 x 3.6 for a volume of 9.9 cc. The left ovary measures 1.8 x 2.8 x 2.9 for a volume of 7.6 cc. Both ovaries contain several subcentimeter follicles, but not in sufficient quantity to meet criteria for polycystic ovarian syndrome. Other: No pathologic free abdominal or pelvic fluid. IMPRESSION: Normal pelvic ultrasound. Dictated by: Mervat Sun M.D. on 04/28/2021 at 8:03 Approved by: Mervat Sun M.D. on 04/28/2021 at 8:10
[2021-04-28 08:47] LABS: Luteinizing Hormone 1.13 mIU/mL; Progesterone, Total 0.95 ng/mL
== END ==
PROVIDERS: PCP Family Medicine; Referring Provider Family Medicine; Visit Provider Obstetrics & Gynecology Reproductive Endocrinology
DX: N97.8 Female infertility of other origin (principal)
CPT/HCPCS: 36415; 76830; 76856; 82670; 83002; 84144

== ENCOUNTER → 2021-05-03 07:16 | Outpatient (CLI) | payer OTHER, SELFPAY ==
--- NOTE | 2021-05-03 | DI.US.S_ITS ---
PROCEDURE: US PELVIC COMPLETE INDICATIONS: INFERTILITY TECHNIQUE: Real-time scanning was performed of the pelvic organs, with image documentation. Additional endovaginal scanning was necessary due to incomplete visualization of the adnexal and endometrial structures by transabdominal scanning. COMPARISON: [facility], , US PELVIC COMPLETE, 04/28/2021, 7:30. FINDINGS: Uterus: Uterus measures 9 x 4.1 x 6.7 cm in size. The endometrium measures 7 mm in combined thickness. There is no discrete uterine fibroid. No endometrial mass or fluid. Ovaries: Right ovary measures 4.2 x 1.4 x 1.4 cm in size. Left ovary measures 2.5 x 2.1 x 2.8 cm in size. No solid appearing ovarian lesions. Less than 12 follicles are seen in bilateral ovaries measures up to 8 x 8 x 4 mm in size on the right side and 7 x 5 x 8 mm in size on the left side. Normal blood flow is seen in bilateral ovaries on color Doppler images. Other: No pathologic free abdominal or pelvic fluid. IMPRESSION: Several subcentimeter follicle seen in bilateral ovaries as described above. No solid appearing ovarian lesion. No evidence of ovarian torsion. No endometrial mass or fluid. No significant changes from previous study. Dictated by: Tavo Denson M.D. on 05/03/2021 at 8:01 Approved by: Tavo Denson M.D. on 05/03/2021 at 8:08
[2021-05-03 09:15] LABS: Luteinizing Hormone 1.76 mIU/mL; Progesterone, Total 0.81 ng/mL
[2021-05-03 09:30] LABS: Estradiol, Total 280.4 pg/mL
== END ==
PROVIDERS: PCP Family Medicine; Referring Provider Obstetrics & Gynecology Reproductive Endocrinology; Visit Provider Obstetrics & Gynecology Reproductive Endocrinology
DX: N97.8 Female infertility of other origin (principal)
CPT/HCPCS: 36415; 76830; 76856; 82670; 83002; 84144

== ENCOUNTER → 2021-05-08 07:10 | Outpatient (CLI) | payer OTHER, SELFPAY ==
--- NOTE | 2021-05-08 | DI.US.S_ITS ---
PROCEDURE: US PELVIC COMPLETE INDICATIONS: FERTILITY WORK-UP TECHNIQUE: Real-time scanning was performed of the pelvic organs, with image documentation. Additional endovaginal scanning was necessary due to incomplete visualization of the adnexal and endometrial structures by transabdominal scanning. COMPARISON: [facility], , US PELVIC COMPLETE, 05/03/2021, 7:31. FINDINGS: Uterus: Uterus is normal in size at 9.2 x 4.4 x 5.811.2 cm. The endometrium measures 11.2 mm in combined thickness. Ovaries: Left ovary measures 2.6 x 2.0 x 3.4 cm. Right ovary measures 4.0 x 1.4 x 2.8 cm. Follicles are present bilaterally. Largest on left measures 0.7 cm, largest on right measures 0.8 cm. Other: No pathologic free abdominal or pelvic fluid. IMPRESSION: Bilateral follicles as above. Dictated by: Shanice Mcnally M.D. on 05/08/2021 at 8:08 Approved by: Shanice Mcnally M.D. on 05/08/2021 at 8:11
[2021-05-08 09:53] LABS: Luteinizing Hormone 6.57 mIU/mL; Progesterone, Total 0.79 ng/mL
[2021-05-08 10:09] LABS: Estradiol, Total 737.5 pg/mL
== END ==
PROVIDERS: PCP Family Medicine; Referring Provider Obstetrics & Gynecology Reproductive Endocrinology; Visit Provider Obstetrics & Gynecology Reproductive Endocrinology
DX: N97.8 Female infertility of other origin (principal)
CPT/HCPCS: 36415; 76830; 76856; 82670; 83002; 84144

== ENCOUNTER → 2021-05-23 09:39 | Outpatient (CLI) | payer OTHER, SELFPAY ==
[2021-05-23 10:59] LABS: Estradiol, Total 389.4 pg/mL
== END ==
PROVIDERS: PCP Family Medicine; Referring Provider Obstetrics & Gynecology Reproductive Endocrinology; Visit Provider Obstetrics & Gynecology Reproductive Endocrinology
DX: N97.8 Female infertility of other origin (principal)
CPT/HCPCS: 36415; 82670; 84144

== ENCOUNTER → 2021-05-26 11:40 | Outpatient (CLI) | payer OTHER, SELFPAY ==
[2021-05-26 13:59] LABS: HCG Quantitative /Beta subunit < 2.4 mIU/mL
== END ==
PROVIDERS: PCP Family Medicine; Referring Provider Obstetrics & Gynecology Reproductive Endocrinology; Visit Provider Obstetrics & Gynecology Reproductive Endocrinology
DX: Z32.00 Encounter for pregnancy test, result unknown (principal)
CPT/HCPCS: 36415; 84144; 84702

== ENCOUNTER → 2022-03-15 11:23 | Outpatient (CLI) | payer OTHER, SELFPAY ==
[2022-03-15 12:24] LABS: Add Manual Diff / Slide Review NO; Basophils Absolute Auto 0 /uL (0-100); Basophils Percent Auto 0.5 % (0-2); Eosinophils Absolute Auto 0 /uL (0-450); Eosinophils Percent Auto 0.5 % (2-4); Hematocrit 43.3 % (36-46); Hemoglobin 14.6 g/dL (12.0-16.0); Lymphocytes Absolute Auto 1400 /uL (1100-4500); Lymphocytes Percent Auto 17.3 % (25-40); Mean Corpuscular HGB Conc 33.7 % (30-36); Mean Corpuscular Hemoglobin 29.7 PG (26-34); Mean Corpuscular Volume 88.1 fL (80-100); Monocytes Absolute Auto 400 /uL (0-900); Monocytes Percent Auto 5.3 % (3-14); Neutrophils Absolute Auto 6200 /uL (1500-7000); Neutrophils Percent Auto 76.4 % (50-75); Platelet Count 206 X10^3/uL (150-400); Red Blood Cell Count 4.91 X10^6/uL (4.0-5.2); White Blood Cell Count 8.1 X10^3/uL (4.5-11.0)
[2022-03-15 12:40] LABS: Alanine Aminotransferase 13 IU/L (<35); Albumin 4.8 g/dL (3.5-5.0); Albumin Globulin Ratio 1.5 (1.0-2.8); Alkaline Phosphatase 70 U/L (38-126); Aspartate Aminotransferase 23 IU/L (14-36); BUN Creatinine Ratio 14.7 (6-22); Blood Urea Nitrogen 11 mg/dL (7-17); Calcium 9.2 mg/dL (8.4-10.2); Carbon Dioxide 22 mmol/L (22-32); Chloride 105 mmol/L (98-107); Cholesterol 217 mg/dL (140-199); Estimated Glomerular Filt Rate > 60 mL/min (>60); Globulin 3.2 g/dL (1.7-4.1); Glucose 93 mg/dL (70-100); HDL Cholesterol 54 mg/dL (40-60); HEMOLYSIS < 15 (0-50); LDL Cholesterol Calculated 144 mg/dL (<100); Potassium 4.8 mmol/L (3.4-5.1); Sodium 137 mmol/L (137-145); Triglycerides 93 mg/dL (35-150)
[2022-03-15 12:41] LABS: Hemoglobin A1C% w Est Avg Glu 5.2 % (4.0-6.0)
[2022-03-15 12:54] LABS: Vitamin D 25 Hydroxy (D3) 44.3 ng/mL (30.0-100.0)
[2022-03-15 13:11] LABS: TSH w/ Reflex to FT4 3.53 uIU/mL (0.47-4.68)
== END ==
PROVIDERS: PCP Family Medicine; Referring Provider Family Medicine; Visit Provider Family Medicine
DX: E55.9 Vitamin D deficiency, unspecified (principal); E66.9 Obesity, unspecified
CPT/HCPCS: 36415; 80053; 80061; 82306; 83036; 84443; 85025

== ENCOUNTER → 2022-09-03 10:14 | Outpatient (CLI) | payer OTHER, SELFPAY ==
--- NOTE | 2022-09-03 10:16 | DI.MG.S_ITS ---
BILATERAL DIGITAL DIAGNOSTIC MAMMOGRAM 3D/2D: 09/03/2022 CLINICAL: Left breast lump. Baseline. No prior exams were available for comparison. There are scattered areas of fibroglandular density in both breasts (category b / 25%-50% glandular tissue). No significant masses, calcifications, or other findings are seen in either breast. IMPRESSION: INCOMPLETE: NEEDS ADDITIONAL IMAGING EVALUATION There is no mammographic abnormality seen in the left breast to correspond with the palpable abnormality, however, targeted ultrasound of the left breast is recommended and will be performed immediately following this exam. Based on the Tyrer Cuzick model (a risk assessment model) the patient's lifetime risk is 11.8% and her 10 year risk is 0.4%. According to the ACR, ACS, and NCCN guidelines, an annual breast MRI exam along with mammogram is recommended if the patient's lifetime risk is 20% or greater. This exam was interpreted at Station ID: [id number]. NOTE: For mammograms, a report in lay terms will be sent to the patient. Approximately 15% of breast malignancies will not be visualized mammographically. In the management of a palpable breast mass, a negative mammogram must not discourage biopsy of a clinically suspicious lesion. Electronically Signed By: Susan bonner/:09/04/2022 16:43:42 Entry: - 09/04/2022 16:43:42 ACR BI-RADS Category 0: Incomplete 3340F
--- NOTE | 2022-09-03 10:16 | DI.US.S_ITS ---
LIMITED ULTRASOUND OF LEFT BREAST AND AXILLA: 09/03/2022 CLINICAL: Palpable left breast lump. Comparison is made to exam dated: 09/03/2022 mammogram - [facility]. Color flow ultrasound of the left breast axilla was performed on the areas of interest. [place] scale images of the real-time examination were reviewed. IMPRESSION: NEGATIVE There is no sonographic evidence of malignancy. There is no mammographic or sonographic abnormality seen in the left breast to correspond with the palpable abnormality, however, clinical followup is recommended. This exam was interpreted at Station ID: [id number]. Electronically Signed By: Susan Guajardo M.D. lk/:09/03/2022 14:24:54 letter sent: Clinical Evaluation Ultrasound BI-RADS: 1 Negative
== END ==
PROVIDERS: PCP Family Medicine; Referring Provider Physician Assistant; Visit Provider Physician Assistant
DX: R92.8 Other abnormal and inconclusive findings on diagnostic imaging of breast (principal); N63.20 Unspecified lump in the left breast, unspecified quadrant
CPT/HCPCS: 76642; 77066; G0279

== ENCOUNTER → 2022-10-25 08:11 | Outpatient (CLI) | payer OTHER, SELFPAY ==
--- NOTE | 2022-10-25 08:12 | DI.MRI.S_ITS ---
BREAST MRI OF BOTH BREASTS: 10/25/2022 CLINICAL: Palpable Left breast lump. PROCEDURE: MR BREAST BI WO CON INDICATIONS: Palpable left breast mass not demonstrated on mammo or US TECHNIQUE: The patient was placed prone in a dedicated breast imaging coil. Axial bilateral STIR, T1 non fat saturation, and T1 pre contrast with fat saturation were acquired. No post-contrast sequences were acquired. Prohance 20 cc IV contrast was administer. However, shortly after administration the patient experienced sneezing and coughing which progressed into difficulty breathing, speaking, and swallowing. Dr. Mclean the on-site radiologist was consulted. The patient was brought to the emergency department for additional therapy. Although I was not present during this contrast reaction, I would classify this reaction as anaphylactic. If the patient requires further MRI scanning 8 different contrast agent should be utilized, premedication should be received, and only administered if necessary under close supervision. Immunology/allergy consultation may be helpful. MRI contrast reactions are very rare. COMPARISON: [facility], US, US BREAST LT LIMITED, 09/03/2022, 11:01. [facility], , MM DIAGNOSTIC MAMMO BI, 09/03/2022, 10:35. FINDINGS: Image quality: Excellent. No obvious mass or significant cyst. A few small T2 hyperintense cysts bilaterally. No enlarged lymph nodes. No internal mammary nodes seen. The right breast is slightly larger than the left breast. IMPRESSION: BENIGN No obvious mass or significant cyst. Post contrast images were not acquired. Patient experienced an anaphylactic MRI contrast reaction which was treated in the emergency department. BIRADS 2. No obvious mass has been identified in the region of the palpable abnormality on mammogram, ultrasound, or noncontrast MRI. Recommend continued clinical surveillance. Dictated by: Jed Young M.D. on 10/25/2022 at 13:39 This exam was interpreted at Station ID: [id number]. Electronically Signed By: Jed Young M.D. slc/:10/25/2022 13:56:44 ACR BI-RADS Category 2: Benign Finding(s) 3342F
== END ==
PROVIDERS: PCP Family Medicine; Referring Provider Surgery; Visit Provider Surgery
DX: N63.21 Unspecified lump in the left breast, upper outer quadrant (principal); T88.6XXA Anaphylactic reaction due to adverse effect of correct drug or medicament properly administered, initial encounter; T50.8X5A Adverse effect of diagnostic agents, initial encounter
CPT/HCPCS: 77047

== ENCOUNTER 2022-10-25 09:00 | Emergency (ER) | payer OTHER, SELFPAY ==
[2022-10-25 09:03] VITALS: BP 137/81
[2022-10-25 09:04] VITALS: PULSE 102; RESP 11; O2SAT 100
[2022-10-25 09:06] VITALS: BP 137/81; PULSE 110; RESP 16; TEMP 36.7; O2SAT 100; BMI 32.3
--- NOTE | 2022-10-25 09:09 | ED_ITS ---
HPI - Allergic Reaction General Chief complaint: Allergic Reaction Stated complaint: allergic reaction Time Seen by Provider: 10/25/22 09:06 History of Present Illness HPI narrative: Patient possibly having allergic reaction to MRI contrast. Brought over from MRI department after having MRI of the breasts. Patient feels tightness and dryness in the throat and mouth. No rash or itching. Patient awake alert, no altered mental status. Evaluation of the pharynx is clear no edema no erythema no midline shift. Related Data Allergies Allergy/AdvReac Type Severity Reaction Status Date / Time Gadolinium-Containing Allergy Verified 10/25/22 10:06 Contrast Medi Review of Systems Review of Systems Narrative: GENERAL: negative chills, fatigue, malaise, fever, sweats. HEENT: negative sinus pain, ear pain, positive sore throat RESPIRATORY: Positive dyspnea, positive cough CARDIOVASCULAR: negative chest pain, palpitations GASTROINTESTINAL: negative nausea, vomiting, abdominal pain : negative dysuria, frequency, hematuria MUSCULOSKELETAL: negative muscle or bony pain SKIN: negative rash, skin lesions NEUROLOGIC: negative weakness, numbness Patient History Medical History History of recurrent ear infection (~1991) Spontaneous vaginal delivery Surgical History Anesthesia History of appendectomy (~11/2002) History of myringotomy (~12/1992) Plantar warts (~2006) [place] teeth removed (~10/2011) Family History Mother Fibromyalgia Anxiety and depression Grandfather Heart disease Hypertension Hyperlipidemia Anxiety Stroke Grandmother Fibromyalgia Diabetes mellitus Grandfather Diabetes mellitus Heart disease Hyperlipidemia Grandmother Hyperlipidemia Social History marital status: household members: spouse and children lives independently: Yes occupational status: unemployed Smoking Status: Never smoker alcohol intake: current substance use type: does not use Smoking Status: Never smoker Exam Narrative Exam Narrative: GENERAL: in no distress, not toxic not dyspneic HEAD: Normocephalic. EYES: Pupils equal round No scleral icterus. ENT: Mucous membranes moist. Pharynx is clear no erythema no edema no midline shift no uvula swelling, no tongue elevation no drooling. NECK: Trachea midline. No stridor CARDIOVASCULAR: Regular rate and rhythm without murmurs, is tachycardic RESPIRATORY: Clear to auscultation. Breath sounds equal bilaterally. No wheezes, rales, or rhonchi. GASTROINTESTINAL: Abdomen soft, non-tender EXTREMITIES: No gross deformities. BACK: No flank tenderness. NEURO: AOx4. SKIN: Warm and dry, no hives no facial hives PSYCH: Not anxious, is cooperative Initial Vital Signs Initial Vital Signs: Vital Signs Blood Pressure 137/81 10/25/22 09:03 Course Orders Ordered: Discontinued Medications Diphenhydramine HCl (Diphenhydramine 50 Mg/Ml Vial) 25 mg IV NOW ONE Stop: 10/25/22 09:08 Last Admin: 10/25/22 09:18 Dose: 25 mg Documented By: RANI Methylprednisolone (Methylprednisolone 125 Mg/2 Ml Vial) 125 mg IV NOW ONE Stop: 10/25/22 09:08 Last Admin: 10/25/22 09:18 Dose: 125 mg Documented By: RANI Reevaluation(s) Reevaluation #1: Symptoms have resolved. After Benadryl and Solu-Medrol. Does not have any throat tightening or shortness of breath. will be driving. Return precautions reviewed with patient. We have listed MRI contrast as an allergy. Patient no longer tachycardic on monitor. Not requiring supplemental oxygen Time: 09:49 Vital Signs Vital signs: Vital Signs - 8 hr 10/25/22 09:06 10/25/22 09:03 10/25/22 09:04 Temperature 98.0 F Pulse Rate 110 H 102 H Respiratory Rate 16 11 L Blood Pressure 137/81 137/81 Pulse Oximetry 100 100 Oxygen Delivery Method Room Air 10/25/22 09:30 10/25/22 09:30 10/25/22 10:00 Temperature Pulse Rate 77 Respiratory Rate 16 Blood Pressure 112/66 102/65 Pulse Oximetry 100 Oxygen Delivery Method Room Air 10/25/22 10:00 Temperature Pulse Rate 74 Respiratory Rate 13 Blood Pressure Pulse Oximetry 98 Oxygen Delivery Method MDM - Allergic Reaction Differential Diagnosis Differential diagnosis: Likely anaphylaxis, allergic reaction, angioedema and adverse reaction to drug MDM Narrative Medical decision making narrative: Appropriate for discharge home. Exam reassuring. Symptoms have resolved with Benadryl and Solu-Medrol. A prescriptions required at this time. No epinephrine required. Patient hemodynamically stable and airway intact. Return precautions reviewed with patient. No prescriptions required. No respiratory distress Discharge Plan Departure Patient Disposition: Home Clinical Impression: Allergic reaction Instructions: DI for Adverse Drug Reaction -- Allergic Activity Restrictions/Additional Instructions: We have listed MRI contrast as your allergy. Be sure to informed me family doctor as well as new allergy. Return if worsening questions or concerns or any trouble breathing or any rash or if any oral swelling. No driving or operating machinery this morning. Referrals: Yenifer Valentino DO [Primary Care Provider] - Visit Report Forms: Patient Portal/API
[2022-10-25] MEDS: methylPREDNISolone 125 MG/2 ML VIAL IV (09:18)
[2022-10-25] MEDS: diphenhydrAMINE 50 MG/ML VIAL 25 MG IV (09:18)
[2022-10-25 09:30] VITALS: BP 112/66; PULSE 77; RESP 16; O2SAT 100
[2022-10-25 10:00] VITALS: BP 102/65; PULSE 74; RESP 13; O2SAT 98
== END 2022-10-25 10:15 | disposition home or self-care (01) ==
PROVIDERS: Emergency Provider Emergency Medicine; PCP Family Medicine
DX: R06.00 Dyspnea, unspecified (principal); R07.0 Pain in throat; R05.9 Cough, unspecified; T50.8X5A Adverse effect of diagnostic agents, initial encounter; N63.21 Unspecified lump in the left breast, upper outer quadrant; T88.6XXA Anaphylactic reaction due to adverse effect of correct drug or medicament properly administered, initial encounter
CPT/HCPCS: 96374; 96375; 99283; 99284; 77047; J1200; J2930

== ENCOUNTER 2023-04-19 19:41 | Emergency (ER) | payer OTHER, SELFPAY ==
[2023-04-19 20:13] VITALS: BP 159/95; PULSE 116; RESP 20; TEMP 37.4; O2SAT 98; BMI 33.9
[2023-04-19 21:21] LABS: Bacteria Urine None Seen; Culture Indicated Urine Cult Not Indicated; RBC Urine 0-1/HPF (0-5/HPF); Squamous Epithelial Cell Urine 1-5 /HPF (0-5/HPF); WBC Urine 0-1/HPF (0-5/HPF)
--- NOTE | 2023-04-19 22:41 | DI.US.S_ITS ---
PROCEDURE: US PELVIC COMPLETE INDICATIONS: PAIN TECHNIQUE: Real-time scanning was performed of the pelvic organs, with image documentation. Additional endovaginal scanning was necessary due to incomplete visualization of the adnexal and endometrial structures by transabdominal scanning. COMPARISON: [facility], US, US PELVIC COMPLETE, 05/08/2021, 7:22. FINDINGS: Uterus: Uterus is anteverted and normal in size at 9.8 x 4.6 x 6.3 cm. The myometrium is homogeneous. The endometrium measures 12 mm combined thickness. Ovaries: The right ovary measures 3.5 x 2.5 x 2.6 cm, with a calculated ovarian volume of 12.2 cc. The left ovary measures 3.3 x 3.5 x 2.8 cm, with a calculated ovarian volume of 17.0 cc. The ovaries have a normal sonographic appearance. Less than 12 follicles can be seen in each ovary. No adnexal masses are seen. Normal Doppler flow is demonstrated to each ovary. Other: No pathologic free abdominal or pelvic fluid. IMPRESSION: No acute sonographic abnormality in the pelvis. Approved by: Julian Mcgrath M.D. on 04/19/2023 at 23:57
--- NOTE | 2023-04-19 22:42 | ED.GENADULT ---
HPI - General Adult General Chief complaint: Urogenital-Female Stated complaint: pelvic pain x2 days/severe Time Seen by Provider: 04/19/23 22:10 Source: patient Mode of arrival: Ambulatory History of Present Illness HPI narrative: Patient is a 33-year-old female who is here for evaluation bilateral lower pelvic pain for past 2 days. States she normally gets pain during the middle of her cycle but she states this is more severe than that. Bilateral pain. No vaginal bleeding. No urinary symptoms. Change in habits. She is not control. She states she is no concern for sexually transmitted diseases. Related Data Previous Rx's Medication Instructions Recorded hydroxyzine pamoate 25 mg capsule See Rx Instructions PO QID #45 caps 10/30/22 Allergies Allergy/AdvReac Type Severity Reaction Status Date / Time Gadolinium-Containing Allergy Severe Anaphylaxis Verified 12/11/22 11:08 Contrast Medi Review of Systems Constitutional Constitutional: Reports system reviewed and no additional complaints, except as documented Gastrointestinal Gastrointestinal: Reports system reviewed and no additional complaints, except as documented Genitourinary Genitourinary: Reports system reviewed and no additional complaints, except as documented Integumentary/Breasts Skin/Breast: Reports system reviewed and no additional complaints, except as documented Patient History Medical History History of recurrent ear infection (~1991) Spontaneous vaginal delivery Surgical History Anesthesia History of appendectomy (~11/2002) History of myringotomy (~12/1992) Plantar warts (~2006) [place] teeth removed (~10/2011) Family History Mother Fibromyalgia Anxiety and depression Grandfather Heart disease Hypertension Hyperlipidemia Anxiety Stroke Grandmother Fibromyalgia Diabetes mellitus Grandfather Diabetes mellitus Heart disease Hyperlipidemia Grandmother Hyperlipidemia Social History marital status: household members: spouse and children lives independently: Yes occupational status: unemployed Smoking Status: Never smoker alcohol intake: current substance use type: does not use Smoking Status: Never smoker alcohol intake frequency: holidays/special occasions only Substance Use Type: does not use Exam Initial Vital Signs Initial Vital Signs: Vital Signs Temperature 99.4 F 04/19/23 20:13 Pulse Rate 116 H 04/19/23 20:13 Respiratory Rate 20 04/19/23 20:13 Blood Pressure 159/95 H 04/19/23 20:13 Pulse Oximetry 98 04/19/23 20:13 Oxygen Delivery Method Room Air 04/19/23 20:13 [facility] Head: normal to inspection and normocephalic GI Inspection: normal to inspection and non-distended Palpation: tender (Bilateral adnexa) Other: Bilateral adnexal tenderness Skin General: no rashes or lesions noted Neuro General: patient alert, patient awake and moves all extremities Course Orders Ordered: ED Orders 04/19/23 20:31 Urine Microscopic Stat 04/19/23 22:41 US pelvic complete Stat 04/19/23 22:45 Complete Blood Count AUTO DIFF Stat Comprehensive Metabolic Panel Stat Lipase Stat Vital Signs Vital signs: Vital Signs - 8 hr 04/20/23 00:37 Pulse Rate 110 H Respiratory Rate 18 Blood Pressure 113/82 Pulse Oximetry 99 Oxygen Delivery Method Room Air Medical Decision Making Lab Data Lab results reviewed: Yes I reviewed the patient's lab results. 04/19/23 22:45 04/19/23 22:45 Labs: Lab Results 04/19/23 04/19/23 04/19/23 Range/Units 20:31 22:45 22:45 WBC 11.7 H (4.5-11.0) X10^3/uL RBC 4.53 (4.0-5.2) X10^6/uL Hgb 13.4 (12.0-16.0) g/dL Hct 39.4 (36-46) % MCV 87.0 (80-100) fL MCH 29.7 (26-34) PG MCHC 34.2 (30-36) % RDW 12.9 (11.6-14.8) % Plt Count 251 (150-400) X10^3/uL Neut % (Auto) 82.5 H (50-75) % Lymph % (Auto) 10.1 L (25-40) % [place] % (Auto) 6.8 (3-14) % Eos % (Auto) 0.2 L (2-4) % Baso % (Auto) 0.4 (0-2) % Neut # (Auto) 9600 H (8083-9284) /uL Lymph # (Auto) 1200 (6520-5896) /uL [place] # (Auto) 800 (0-900) /uL Eos # (Auto) 0 (0-450) /uL Baso # (Auto) 0 (0-100) /uL Sodium 139 (137-145) mmol/L Potassium 3.8 (3.4-5.1) mmol/L Chloride 101 (98-107) mmol/L Carbon Dioxide 28 (22-32) mmol/L BUN 13 (7-17) mg/dL Creatinine 0.96 (0.52-1.04) mg/dL Estimated GFR > 60 (>60) mL/min BUN/Creatinine Ratio 13.5 (6-22) Glucose 110 H (70-100) mg/dL Calcium 9.5 (8.4-10.2) mg/dL Total Bilirubin 0.8 (0.2-1.3) mg/dL AST 22 (14-36) IU/L ALT 19 (<35) IU/L Alkaline Phosphatase 59 (38-126) U/L Total Protein 8.1 (6.3-8.2) g/dL Albumin 4.8 (3.5-5.0) g/dL Globulin 3.3 (1.7-4.1) g/dL Albumin/Globulin Ratio 1.5 (1.0-2.8) Lipase 89 (23-300) U/L Urine RBC 0-1/hpf D (0-5/HPF) Urine WBC 0-1/hpf (0-5/HPF) Ur Squamous Epith Cells 1-5 /hpf D (0-5/HPF) Urine Bacteria None seen (None) Ur Culture Indicated? Cult not indicated Point of Care Testing Test Results Negative Urine Dip Bedside Urine Glucose Negative Bedside Urine Bilirubin - Negative Bedside Urine Ketone - Negative Urine Specific [place] 1.015 Bedside Urine Occult Blood +/- Bedside Urine pH 7.0 Bedside Urine Protein - Negative Bedside Urine Urobilinogen - Negative Bedside Urine Nitrite - Negative Bedside Urine Leukocytes - Negative Esterase Point of care testing: Point of Care Testing Test Results Negative Urine Dip Bedside Urine Glucose Negative Bedside Urine Bilirubin - Negative Bedside Urine Ketone - Negative Urine Specific [place] 1.015 Bedside Urine Occult Blood +/- Bedside Urine pH 7.0 Bedside Urine Protein - Negative Bedside Urine Urobilinogen - Negative Bedside Urine Nitrite - Negative Bedside Urine Leukocytes - Negative Esterase Imaging Data US - SWIFT TENDER: Radiologist's Impression: PROCEDURE:? US PELVIC COMPLETE ? INDICATIONS:? PAIN ? TECHNIQUE:? Real-time scanning was performed of the pelvic organs, with image documentation.? Additional endovaginal scanning was necessary due to incomplete visualization of the adnexal and endometrial structures by transabdominal scanning.? ? COMPARISON:? [facility], , US PELVIC COMPLETE, 05/08/2021, 7:22. ? FINDINGS:? ?? Uterus:? Uterus is anteverted and normal in size at 9.8 x 4.6 x 6.3 cm. The myometrium is homogeneous. ? The endometrium measures 12 mm combined thickness.? ? Ovaries:? The right ovary measures 3.5 x 2.5 x 2.6 cm, with a calculated ovarian volume of 12.2 cc. The left ovary measures 3.3 x 3.5 x 2.8 cm, with a calculated ovarian volume of 17.0 cc. The ovaries have a normal sonographic appearance. Less than 12 follicles can be seen in each ovary.? No adnexal masses are seen.? Normal Doppler flow is demonstrated to each ovary. ? Other:? No pathologic free abdominal or pelvic fluid. ? IMPRESSION:? No acute sonographic abnormality in the pelvis. MDM Narrative Medical decision making narrative: Ultrasound start acute pathology. Urinalysis is unremarkable. Her pain is in the adnexal region not in her abdomen region. She has had an appendectomy. Low suspicion for an acute abdominal surgical pathology. Pleural-based discharge patient home. She continue to take Tylenol and ibuprofen. I did advise that she contact her primary doctor for follow-up. She expressed understanding and agreement with plan. Discharge Plan Departure Patient Disposition: Home Clinical Impression: Pelvic pain Instructions: DI for Pelvic Pain Activity Restrictions/Additional Instructions: I recommend that you continue to take all your medications as directed. You can take Tylenol or ibuprofen for any discomfort. Contact your primary doctor for follow-up. Return to the emergency department for new or worsening symptoms. Prescriptions: No Action hydroxyzine pamoate 25 mg capsule See Rx Instructions PO QID Qty: 45 1RF Rx Instructions: Take one or two capsules every 6 hours as needed for anxiety and/or for sleep Referrals: Yenifer Valentino DO [Primary Care Provider] - Stand Alone Forms: Patient Portal/API
[2023-04-19 23:01] LABS: Add Manual Diff / Slide Review NO; Basophils Absolute Auto 0 /uL (0-100); Basophils Percent Auto 0.4 % (0-2); Eosinophils Absolute Auto 0 /uL (0-450); Eosinophils Percent Auto 0.2 % (2-4); Hematocrit 39.4 % (36-46); Hemoglobin 13.4 g/dL (12.0-16.0); Lymphocytes Absolute Auto 1200 /uL (1100-4500); Lymphocytes Percent Auto 10.1 % (25-40); Mean Corpuscular HGB Conc 34.2 % (30-36); Mean Corpuscular Hemoglobin 29.7 PG (26-34); Monocytes Absolute Auto 800 /uL (0-900); Monocytes Percent Auto 6.8 % (3-14); Neutrophils Absolute Auto 9600 /uL (1500-7000); Neutrophils Percent Auto 82.5 % (50-75); Platelet Count 251 X10^3/uL (150-400); Red Blood Cell Count 4.53 X10^6/uL (4.0-5.2); Red Cell Distribution Width 12.9 % (11.6-14.8); White Blood Cell Count 11.7 X10^3/uL (4.5-11.0)
[2023-04-19 23:09] LABS: Alanine Aminotransferase 19 IU/L (<35); Albumin 4.8 g/dL (3.5-5.0); Albumin Globulin Ratio 1.5 (1.0-2.8); Alkaline Phosphatase 59 U/L (38-126); Aspartate Aminotransferase 22 IU/L (14-36); BUN Creatinine Ratio 13.5 (6-22); Bilirubin Total 0.8 mg/dL (0.2-1.3); Blood Urea Nitrogen 13 mg/dL (7-17); Calcium 9.5 mg/dL (8.4-10.2); Carbon Dioxide 28 mmol/L (22-32); Chloride 101 mmol/L (98-107); Estimated Glomerular Filt Rate > 60 mL/min (>60); Globulin 3.3 g/dL (1.7-4.1); Glucose 110 mg/dL (70-100); HEMOLYSIS 19 (0-50); Lipase 89 U/L (23-300); Potassium 3.8 mmol/L (3.4-5.1); Sodium 139 mmol/L (137-145); Total Protein 8.1 g/dL (6.3-8.2)
[2023-04-20 00:37] VITALS: BP 113/82; PULSE 110; RESP 18; O2SAT 99
== END 2023-04-20 00:37 | disposition home or self-care (01) ==
PROVIDERS: Emergency Provider Emergency Medicine; PCP Family Medicine
DX: R10.2 Pelvic and perineal pain (principal)
CPT/HCPCS: 76830; 76856; 80053; 81003; 81015; 81025; 83690; 85025; 93975; 99282; 99283

== ENCOUNTER 2023-04-23 19:36 | Emergency (ER) | payer OTHER, SELFPAY ==
[2023-04-23 19:44] VITALS: BP 128/76; PULSE 115; RESP 20; TEMP 38.2; O2SAT 99; BMI 33.9
--- NOTE | 2023-04-23 20:19 | DI.RAD.S_ITS ---
PROCEDURE: XR CHEST 1V INDICATIONS: suspected sepsis TECHNIQUE: One view of the chest was acquired. COMPARISON: [facility], , CHEST 2 VIEW, 02/07/2016, 21:31. FINDINGS: Surgical changes and devices: None. Lungs and pleura: Lungs are clear. No pleural effusions or pneumothorax. Mediastinum: Mediastinal contours appear normal. Heart size is normal. Bones and chest wall: No suspicious bony lesions. Overlying soft tissues appear unremarkable. IMPRESSION: 1. No acute cardiopulmonary disease. Dictated by: Kashmir Gloria M.D. on 04/23/2023 at 21:33 Approved by: Kashmir Gloria M.D. on 04/23/2023 at 21:34
[2023-04-23] MEDS: SODIUM CHLORIDE 0.9% 1,000 ML 1000 ML IV (20:46)
[2023-04-23 20:56] LABS: Add Manual Diff / Slide Review NO; Basophils Absolute Auto 100 /uL (0-100); Basophils Percent Auto 0.6 % (0-2); Eosinophils Absolute Auto 0 /uL (0-450); Eosinophils Percent Auto 0.4 % (2-4); Hematocrit 37.2 % (36-46); Hemoglobin 12.7 g/dL (12.0-16.0); Lymphocytes Absolute Auto 1300 /uL (1100-4500); Lymphocytes Percent Auto 11.9 % (25-40); Mean Corpuscular HGB Conc 34.2 % (30-36); Mean Corpuscular Hemoglobin 29.8 PG (26-34); Mean Corpuscular Volume 87.3 fL (80-100); Monocytes Absolute Auto 800 /uL (0-900); Neutrophils Absolute Auto 8400 /uL (1500-7000); Neutrophils Percent Auto 79.1 % (50-75); Platelet Count 280 X10^3/uL (150-400); Red Blood Cell Count 4.26 X10^6/uL (4.0-5.2); Red Cell Distribution Width 12.8 % (11.6-14.8); White Blood Cell Count 10.6 X10^3/uL (4.5-11.0)
[2023-04-23 21:08] LABS: INR 1.2 (0.9-1.3); Prothrombin Time 13.3 SECONDS (10.1-12.7)
[2023-04-23 21:11] LABS: PTT Partial Thromboplastin Tim 28 SECONDS (26-36)
[2023-04-23 21:12] LABS: Alanine Aminotransferase 16 IU/L (<35); Albumin 4.6 g/dL (3.5-5.0); Albumin Globulin Ratio 1.4 (1.0-2.8); Alkaline Phosphatase 58 U/L (38-126); Aspartate Aminotransferase 21 IU/L (14-36); BUN Creatinine Ratio 13.4 (6-22); Bilirubin Total 0.8 mg/dL (0.2-1.3); Blood Urea Nitrogen 11 mg/dL (7-17); Calcium 9.2 mg/dL (8.4-10.2); Carbon Dioxide 27 mmol/L (22-32); Chloride 100 mmol/L (98-107); Estimated Glomerular Filt Rate > 60 mL/min (>60); Globulin 3.4 g/dL (1.7-4.1); Glucose 100 mg/dL (70-100); HEMOLYSIS 39 (0-50); Lipase 74 U/L (23-300); Potassium 3.9 mmol/L (3.4-5.1); Sodium 136 mmol/L (137-145)
[2023-04-23 21:14] LABS: Lactate (Lactic Acid) 0.8 mmol/L (0.7-2.1)
[2023-04-23 21:28] LABS: Procalcitonin 0.05 ng/mL (<0.5)
[2023-04-23 21:46] VITALS: BP 109/68; PULSE 97; RESP 16; O2SAT 97
--- NOTE | 2023-04-23 23:59 | ED_ITS ---
HPI - Female Genitourinary General Chief complaint: Urogenital-Female Stated complaint: Pelvic pain, worsening, Fever, headache, Time Seen by Provider: 04/23/23 20:30 Source: patient Mode of arrival: Ambulatory Limitations: no limitations History of Present Illness HPI Narrative: This is a 33-year-old female who presents with lower pelvic pain for the past 7- 8 days. Patient was seen on 04/19/2023 had evaluation with pelvic ultrasound. Patient states pain has been persisting and increasing. She states it is worse when she eats food. She had a fever today. She denies any vomiting but has had nausea. She states no chest pain or shortness of breath. She states she is had some difficulty with bowel movements small rafael not full large bowel movements and uncomfortable. She states the pain is lower pelvic in the rectal area. Bowel movements are painful as well. She denies any dysuria, urgency or frequency. No vaginal bleeding or discharge. Patient states she is had an appendectomy. She states she is allergic to gadolinium and has had anaphylaxis. No tobacco, regular alcohol or illicit. She is accompanied by her mom. Related Data Previous Rx's Medication Instructions Recorded hydroxyzine pamoate 25 mg capsule See Rx Instructions PO QID #45 caps 10/30/22 ciprofloxacin HCl 500 mg tablet 500 mg PO Q12H #20 tabs 04/24/23 ketorolac 10 mg tablet 10 mg PO Q6H PRN pain 5 days #10 04/24/23 tabs metronidazole 500 mg tablet 500 mg PO TID 10 days #30 tabs 04/24/23 Allergies Allergy/AdvReac Type Severity Reaction Status Date / Time Gadolinium-Containing Allergy Severe Anaphylaxis Verified 12/11/22 11:08 Contrast Medi Review of Systems Review of Systems ROS Unobtainable: All systems reviewed & are unremarkable except as noted in HPI and below Patient History Medical History History of recurrent ear infection (~1991) Spontaneous vaginal delivery Surgical History Anesthesia History of appendectomy (~11/2002) History of myringotomy (~12/1992) Plantar warts (~2006) [place] teeth removed (~10/2011) Family History Mother Fibromyalgia Anxiety and depression Grandfather Heart disease Hypertension Hyperlipidemia Anxiety Stroke Grandmother Fibromyalgia Diabetes mellitus Grandfather Diabetes mellitus Heart disease Hyperlipidemia Grandmother Hyperlipidemia alcohol intake frequency: holidays/special occasions only Substance Use Type: does not use Exam Narrative Exam Narrative: GENERAL: Alert and oriented x three, female in mild distress. HEENT: Head normocephalic, atraumatic, EOMI, pupils reactive, face symmetric, moist mucous membranes NECK: Supple, full range of motion CARDIOVASCULAR: Regular rate and rhythm without murmurs, rubs or gallops. RESPIRATORY: Breath sounds equal bilaterally, no wheezes rales or rhonchi. ABDOMEN: Soft, generalized tenderness greatest at the left lower quadrant. Normoactive bowel sounds all 4 quadrants. No guarding or rebound, rigidity, no mass : No CVA tenderness EXTREMITIES: Normal range of motion, no clubbing or edema. Neurovascularly intact NEUROLOGICAL: Cranial nerves II through XII grossly intact. Moving all extremities SKIN: Warm, dry, no petechiae, no rashes or lesions. Initial Vital Signs Initial Vital Signs: Vital Signs Temperature 100.8 F H 04/23/23 19:44 Pulse Rate 115 H 04/23/23 19:44 Respiratory Rate 20 04/23/23 19:44 Blood Pressure 128/76 04/23/23 19:44 Pulse Oximetry 99 04/23/23 19:44 Oxygen Delivery Method Room Air 04/23/23 19:44 Course Orders Ordered: ED Orders 04/23/23 20:35 Complete Blood Count AUTO DIFF Stat Comprehensive Metabolic Panel Stat Lactate (Lactic Acid) Stat Lipase Stat PTT Partial Thromboplastin Low Stat Procalcitonin Stat Prothrombin Time INR Stat 04/23/23 22:00 Blood Culture Stat 04/24/23 00:07 CT kidney ureter bladder (KUB) Stat Discontinued Medications Ciprofloxacin (Ciprofloxacin 250 Mg Tablet) 500 mg PO NOW ONE Stop: 04/24/23 01:18 Last Admin: 04/24/23 01:22 Dose: 500 mg Documented By: Sodium Chloride (Normal Saline 0.9%) 1,000 mls @ 1,000 mls/hr IV BOLUS ONE Stop: 04/23/23 21:18 Last Infusion: 04/23/23 22:30 Dose: 0 mls/hr Documented By: Admin: 04/23/23 20:46 Dose: 1,000 mls/hr Documented By: Ketorolac Tromethamine (Ketorolac 30 Mg/Ml Vial) 15 mg IV NOW ONE Stop: 04/24/23 00:08 Last Admin: 04/24/23 00:15 Dose: 15 mg Documented By: Metronidazole (Metronidazole 500 Mg Tablet) 500 mg PO BID ONE Stop: 04/24/23 01:18 Last Admin: 04/24/23 01:22 Dose: 500 mg Documented By: Ondansetron HCl (Ondansetron 4 Mg/2 Ml Inj) 4 mg IV NOW PRN PRN Reason: Nausea And Vomiting Ondansetron HCl (Ondansetron 4 Mg Odt) 4 mg SL NOW PRN PRN Reason: Nausea And Vomiting Vital Signs Vital signs: Vital Signs - 8 hr 04/23/23 21:46 04/24/23 00:20 04/24/23 01:29 Temperature 98.0 F Pulse Rate 97 H 88 85 Respiratory Rate 16 16 16 Blood Pressure 109/68 112/69 110/64 Pulse Oximetry 97 98 99 Oxygen Delivery Method Room Air Room Air Room Air MDM - Female Genitourinary Lab Data 04/23/23 20:35 04/23/23 20:35 Labs: Lab Results 04/23/23 04/23/23 04/23/23 Range/Units 20:35 20:35 20:35 WBC 10.6 (4.5-11.0) X10^3/uL RBC 4.26 (4.0-5.2) X10^6/uL Hgb 12.7 (12.0-16.0) g/dL Hct 37.2 (36-46) % MCV 87.3 (80-100) fL MCH 29.8 (26-34) PG MCHC 34.2 (30-36) % RDW 12.8 (11.6-14.8) % Plt Count 280 (150-400) X10^3/uL Neut % (Auto) 79.1 H (50-75) % Lymph % (Auto) 11.9 L (25-40) % [place] % (Auto) 8.0 (3-14) % Eos % (Auto) 0.4 L (2-4) % Baso % (Auto) 0.6 (0-2) % Neut # (Auto) 8400 H (0471-0359) /uL Lymph # (Auto) 1300 (7390-7169) /uL [place] # (Auto) 800 (0-900) /uL Eos # (Auto) 0 (0-450) /uL Baso # (Auto) 100 (0-100) /uL PT 13.3 H (10.1-12.7) SECONDS INR 1.2 (0.9-1.3) APTT 28 (26-36) SECONDS Sodium 136 L (137-145) mmol/L Potassium 3.9 (3.4-5.1) mmol/L Chloride 100 (98-107) mmol/L Carbon Dioxide 27 (22-32) mmol/L BUN 11 (7-17) mg/dL Creatinine 0.82 (0.52-1.04) mg/dL Estimated GFR > 60 (>60) mL/min BUN/Creatinine Ratio 13.4 (6-22) Glucose 100 (70-100) mg/dL Lactate (0.7-2.1) mmol/L Calcium 9.2 (8.4-10.2) mg/dL Total Bilirubin 0.8 (0.2-1.3) mg/dL AST 21 (14-36) IU/L ALT 16 (<35) IU/L Alkaline Phosphatase 58 (38-126) U/L Total Protein 8.0 (6.3-8.2) g/dL Albumin 4.6 (3.5-5.0) g/dL Globulin 3.4 (1.7-4.1) g/dL Albumin/Globulin Ratio 1.4 (1.0-2.8) Lipase 74 (23-300) U/L Procalcitonin 0.05 (<0.5) ng/mL 04/23/23 Range/Units 20:35 WBC (4.5-11.0) X10^3/uL RBC (4.0-5.2) X10^6/uL Hgb (12.0-16.0) g/dL Hct (36-46) % MCV (80-100) fL MCH (26-34) PG MCHC (30-36) % RDW (11.6-14.8) % Plt Count (150-400) X10^3/uL Neut % (Auto) (50-75) % Lymph % (Auto) (25-40) % [place] % (Auto) (3-14) % Eos % (Auto) (2-4) % Baso % (Auto) (0-2) % Neut # (Auto) (9589-6613) /uL Lymph # (Auto) (8629-5046) /uL Crisp # (Auto) (0-900) /uL Eos # (Auto) (0-450) /uL Baso # (Auto) (0-100) /uL PT (10.1-12.7) SECONDS INR (0.9-1.3) APTT (26-36) SECONDS Sodium (137-145) mmol/L Potassium (3.4-5.1) mmol/L Chloride (98-107) mmol/L Carbon Dioxide (22-32) mmol/L BUN (7-17) mg/dL Creatinine (0.52-1.04) mg/dL Estimated GFR (>60) mL/min BUN/Creatinine Ratio (6-22) Glucose (70-100) mg/dL Lactate 0.8 (0.7-2.1) mmol/L Calcium (8.4-10.2) mg/dL Total Bilirubin (0.2-1.3) mg/dL AST (14-36) IU/L ALT (<35) IU/L Alkaline Phosphatase (38-126) U/L Total Protein (6.3-8.2) g/dL Albumin (3.5-5.0) g/dL Globulin (1.7-4.1) g/dL Albumin/Globulin Ratio (1.0-2.8) Lipase (23-300) U/L Procalcitonin (<0.5) ng/mL Point of Care Testing Test Results Negative Urine Dip Bedside Urine Glucose Negative Bedside Urine Bilirubin - Negative Bedside Urine Ketone - Negative Urine Specific [place] 1.000 Bedside Urine Occult Blood - Negative Bedside Urine pH 7.5 Bedside Urine Protein - Negative Bedside Urine Urobilinogen - Negative Bedside Urine Nitrite - Negative Bedside Urine Leukocytes - Negative Esterase Imaging Data CT scan - abdomen/pelvis: Radiologist's Impression: Close Abdomen/Pelvis CT (Signed) Kashmir Gloria - 04/24/23 Chest X-Ray (Signed) Kashmir Gloria - 04/23/[address] [address] [address] Scan Report Signed Patient: Kenna Urbina MR#: [id number] : 1990 Acct:[id number] Age/Sex: 33 / F Date of Service: 04/24/23 Loc: ED Accession Number: [id number] ?? Procedure: CT kidney ureter bladder (KUB) Ordering Provider: Ayleen Diego D.O. PROCEDURE:? CT KIDNEY URETER BLADDER (KUB) ? INDICATIONS:? rectal/abd pain, worse w/ food ? TECHNIQUE:? Axial sections were acquired from the lung bases to the pubic symphysis.? Coronal and sagittal reformats were performed.? For radiation dose reduction, the following was used: ?automated exposure control, adjustment of mA and/or kV according to patient size.? ? COMPARISON:? None. ? FINDINGS:? Image quality:? Excellent.? ? Lung bases:? There is minimal atelectasis.? ? Heart:? Heart is normal in size. ? URINARY: Right Kidney and Ureter: ? No stones or hydronephrosis.? No hydroureter.? ? Left Kidney and Ureter: ? No stones or hydronephrosis.? No hydroureter. ? Bladder:? Normal wall thickness. No stones. ? ? ? ABDOMEN: Liver:? Noncontrast evaluation of the liver demonstrates no discrete? mass. Gallbladder:? Within normal limits without calcified gallstones.? ? Biliary ducts:? No biliary ductal dilatation.? ? Pancreas:? Unremarkable.? ? Spleen:? Normal in size.? ? Adrenal Glands:? No adrenal nodules.? ? ? Stomach and Bowel:? Stomach and small bowel loops are normal in caliber and wall thickness.? No pericecal inflammatory changes to suggest appendicitis.? There is colonic diverticulosis.? Mild segmental wall thickening is demonstrated in the sigmoid colon with pericolonic fat stranding compatible with a colitis.? There is suggestion of an associated thick-walled large diverticulum versus an exophytic mass measuring up to 2.2 x 2.3 cm.? Peritoneum:? No abnormal intraperitoneal fluid.? No free air.? ? Ventral Wall: ? No hernia.? Abdominal Nodes:? No retroperitoneal or mesenteric adenopathy by size criteria.? Vessels:? Aorta and inferior vena cava are normal in size.? ? PELVIS: Pelvic Organs:? Unremarkable.? ? Pelvic Nodes: No enlarged lymph nodes.? Miscellaneous: No inguinal hernias identified. ? ? ? Bones:? Visualized osseous structures demonstrate no suspicious focal lesions. IMPRESSION:? ? 1. Mild segmental wall thickening in the sigmoid colon with pericolonic fat stranding compatible with a colitis.? There is suggestion of an associated thick-walled diverticulum versus an exophytic mass.? Consider follow-up colonoscopy. ? ? Dictated by: Kashmir Gloria M.D. on 04/24/2023 at 0:50 ? ? Approved by: Kashmir Gloria M.D. on 04/24/2023 at 1:00?? MDM Narrative Medical decision making narrative: This is a 33 female who is had pelvic pain for the past approximate week. Patient was seen here on 04/19/2023 had pelvic ultrasound is pain was quite abrupt on onset and suspected ruptured ovarian cyst. That was negative, patient states she is noted pain is worse every time she eats food suggesting peristalsis maybe worsening, she is had some constipation having bowel movements with small in pebbly and painful. No black or bloody stools. No urinary or vaginal bleeding or discharge. Suspect colitis or possibly diverticulitis, patient's lab show leftward shift but no leukocytosis, appropriate hemoglobin, CMP and LFTs are negative. Patient's test is negative along with urine sample. Discussed with patient about CT abdomen pelvis, she is quite fearful of contrast we discussed at length that she would not be receiving gadolinium which causes anaphylaxis but she becomes very tearful. We discussed risks versus benefits and she elects to obtain CT abdomen pelvis without contrast understanding that will not optimum for her evaluation. Patient did have a fever along with tachycardia, no other septic changes currently. Based on this would cover patient with antibiotics. Discussed with patient she is nontoxic appearing. Imaging showed possible diverticulum versus exophytic mass. Patient is feeling much improved he is no longer tachycardic. Plan for Cipro/Flagyl, Toradol for pain management along with Tylenol. Strict return precautions with fevers if persisting more than 12 hours or any worsening changes to return to the ED. We also reviewed she needs follow up for colonoscopy for further evaluation. Discharge Plan Departure Patient Disposition: Home Clinical Impression: Colitis Instructions: DI for Colitis Activity Restrictions/Additional Instructions: Follow-up with general surgery or Gastroenterology for recheck and colonoscopy to evaluate for diverticulitis versus mass. Please call to set up an appointment. Your imaging shows changes consistent with colitis and there is a either thick- walled diverticulum versus mass noted on imaging this needs to be followed up with colonoscopy to more fully evaluate. Take antibiotics until completely gone. Do not drink alcohol with Flagyl or metronidazole it will make you vomit. You may take Tylenol up to a 1000 mg every 6 hours. You can take Toradol 1 tablet every 6 hours as needed for pain. Do not take ibuprofen, NSAIDs such as Aleve, naproxen or similar medications with this. [facility] [place] Please return for fevers, increasing abdominal back or flank pain, persistent vomiting, or lightheadedness or passing out, new rectal bleeding, difficulty with urination or other new or concerning changes. Prescriptions: New ciprofloxacin HCl 500 mg tablet 500 mg PO Q12H Qty: 20 0RF metronidazole 500 mg tablet 500 mg PO TID 10 Days Qty: 30 0RF ketorolac 10 mg tablet 10 mg PO Q6H PRN (Reason: pain) 5 Days Qty: 10 0RF No Action hydroxyzine pamoate 25 mg capsule See Rx Instructions PO QID Qty: 45 1RF Rx Instructions: Take one or two capsules every 6 hours as needed for anxiety and/or for sleep Referrals: Carlito Eddy MD [Physician] - Yenifer Valentino DO [Primary Care Provider] - Stand Alone Forms: Patient Portal/API
--- NOTE | 2023-04-24 00:07 | DI.CT.S_ITS ---
PROCEDURE: CT KIDNEY URETER BLADDER (KUB) INDICATIONS: rectal/abd pain, worse w/ food TECHNIQUE: Axial sections were acquired from the lung bases to the pubic symphysis. Coronal and sagittal reformats were performed. For radiation dose reduction, the following was used: automated exposure control, adjustment of mA and/or kV according to patient size. COMPARISON: None. FINDINGS: Image quality: Excellent. Lung bases: There is minimal atelectasis. Heart: Heart is normal in size. URINARY: Right Kidney and Ureter: No stones or hydronephrosis. No hydroureter. Left Kidney and Ureter: No stones or hydronephrosis. No hydroureter. Bladder: Normal wall thickness. No stones. ABDOMEN: Liver: Noncontrast evaluation of the liver demonstrates no discrete mass. Gallbladder: Within normal limits without calcified gallstones. Biliary ducts: No biliary ductal dilatation. Pancreas: Unremarkable. Spleen: Normal in size. Adrenal Glands: No adrenal nodules. Stomach and Bowel: Stomach and small bowel loops are normal in caliber and wall thickness. No pericecal inflammatory changes to suggest appendicitis. There is colonic diverticulosis. Mild segmental wall thickening is demonstrated in the sigmoid colon with pericolonic fat stranding compatible with a colitis. There is suggestion of an associated thick-walled large diverticulum versus an exophytic mass measuring up to 2.2 x 2.3 cm. Peritoneum: No abnormal intraperitoneal fluid. No free air. Ventral Wall: No hernia. Abdominal Nodes: No retroperitoneal or mesenteric adenopathy by size criteria. Vessels: Aorta and inferior vena cava are normal in size. PELVIS: Pelvic Organs: Unremarkable. Pelvic Nodes: No enlarged lymph nodes. Miscellaneous: No inguinal hernias identified. Bones: Visualized osseous structures demonstrate no suspicious focal lesions. IMPRESSION: 1. Mild segmental wall thickening in the sigmoid colon with pericolonic fat stranding compatible with a colitis. There is suggestion of an associated thick-walled diverticulum versus an exophytic mass. Consider follow-up colonoscopy. Dictated by: Kashmir Gloria M.D. on 04/24/2023 at 0:50 Approved by: Kashmir Gloria M.D. on 04/24/2023 at 1:00
[2023-04-24] MEDS: KETOROLAC 30 MG/ML VIAL 15 MG IV (00:15)
[2023-04-24 00:20] VITALS: BP 112/69; PULSE 88; RESP 16; O2SAT 98
[2023-04-24] MEDS: CIPROFLOXACIN 250 MG TABLET 500 MG PO (01:22)
[2023-04-24] MEDS: metroNIDAZOLE 500 MG TABLET PO (01:22)
[2023-04-24 01:29] VITALS: BP 110/64; PULSE 85; RESP 16; TEMP 36.7; O2SAT 99
== END 2023-04-24 01:34 | disposition home or self-care (01) ==
PROVIDERS: Emergency Provider Emergency Medicine; PCP Family Medicine
DX: K52.9 Noninfective gastroenteritis and colitis, unspecified (principal)
CPT/HCPCS: 36415; 71045; 74176; 80053; 81003; 81025; 83605; 83690; 84145; 85025; 85610; 85730; 87040; 87086; 96374; 99284; J1885

== ENCOUNTER 2023-07-15 08:29 | Day surgery (SDC) | payer OTHER, SELFPAY ==
[2023-07-15] MEDS: LACTATED RINGERS 1,000 ML 100 ML IV (08:39)
[2023-07-15 08:42] VITALS: BP 120/81; PULSE 97; RESP 16; TEMP 36.8; O2SAT 100; BMI 33.9
--- NOTE | 2023-07-15 08:45 | PM.HP.1 ---
History of Present Illness History of Present Illness Date Patient Seen: 07/15/23 Time Patient Seen: 08:45 Chief complaint: SDC Narrative: I reviewed Jef Glasgow's note. No significant changes. [facility] Medical History History of recurrent ear infection (~1991) Spontaneous vaginal delivery Surgical History Anesthesia History of appendectomy (~11/2002) History of myringotomy (~12/1992) Plantar warts (~2006) [place] teeth removed (~10/2011) Family History Mother Fibromyalgia Anxiety and depression Grandfather Heart disease Hypertension Hyperlipidemia Anxiety Stroke Grandmother Fibromyalgia Diabetes mellitus Grandfather Diabetes mellitus Heart disease Hyperlipidemia Grandmother Hyperlipidemia Social History marital status: household members: spouse and children lives independently: Yes occupational status: unemployed Smoking Status: Never smoker alcohol intake: current substance use type: does not use Meds Home Medications and Allergies Home Medications Medication Instructions Recorded Confirmed Type hydroxyzine pamoate 25 mg capsule See Rx Instructions PO QID #45 caps 10/30/22 07/15/23 Rx Allergies Allergy/AdvReac Type Severity Reaction Status Date / Time Gadolinium-Containing Allergy Severe Anaphylaxis Verified 07/15/23 08:34 Contrast Medi Review of Systems Review of Systems ROS: Yes All systems reviewed with the patient and are negative except as otherwise documented Exam Const General: cooperative HENMT Head: normal to inspection Eyes General: appearance normal, both eyes and all related structures Neck Neck: normal visual inspection Chest Chest: normal inspection of the chest Resp Effort & Inspection: normal respiratory effort Cardio Rate: regular rate GI Inspection: normal to inspection Skin General: no rashes or lesions noted Neuro General: patient alert and patient awake Extrem General: normal to inspection and no pedal edema Psych Appearance: grossly normal Assessment & Plan Assessment & Plan narrative: 33-year-old female with transient symptoms of colitis presumed to be infectious. Symptoms have resolved but imaging was concerning for pathology in the sigmoid. Colonoscopy is pursued today.
--- NOTE | 2023-07-15 08:47 | PM.PREOP ---
Pre-operative Note Interval Note History & Physical reviewed/Exam performed by Physician: Yes Changes to H&P: No ASA Class (for procedural sedation): II
--- NOTE | 2023-07-15 09:19 | PM.OP.COLON ---
Operative Date/Time/Diagnoses Date of procedure: 07/15/23 Time of procedure: 09:19 Pre-op diagnosis: Abnormal CT imaging Post-op diagnosis: same Procedure & Clinicians Study performed: Colonoscopy Same procedure as scheduled: Yes Indications: Abnormal CT imaging Surgeon: Navarro Lopez Procedure Notes SCOAP/Timeout: Done Procedure in detail: After the risks and benefits were explained, written and verbal informed consent was obtained. The patient was brought into the procedure room and placed into the left lateral decubitus position. Please see anesthesia notes for sedation details. Digital rectal examination was accomplished. The scope was introduced into the patient and advanced under direct visualization to the cecum as identified by the appendiceal orifice and ileocecal valve. The scope was slowly withdrawn to carefully examine the mucosa for any defects or lesions. Comprehensive imaging was accomplished throughout the rectum including the dentate line. The colon was decompressed, the scope was then removed from the patient who tolerated the procedure well. Adult colonoscope Bowel prep adequate Scope withdrawal time: 8 minutes Sedation minutes: 17 Specimen(s): none sent Complications: none Impression: Patient had grade 2-3 nonbleeding nonthrombosed hemorrhoids. There was some scattered diverticulosis all throughout the sigmoid. No sign of macroscopic colitis. No sign of any polyps or mass lesions. No features identified today to correlate with the April CT scan report. Endoscopic diagnosis 1. Grade 2-3 hemorrhoids 2. Diverticulosis Post-procedure Plan for aftercare: 1. Continue fiber based bowel regimen for soft regular stools. 2. Follow-up in primary care as before. Disposition: PACU
[2023-07-15 09:21] VITALS: BP 104/57; PULSE 78; RESP 14; TEMP 35.9; O2SAT 99
[2023-07-15 09:27] VITALS: BP 98/71; PULSE 79; RESP 13; O2SAT 98
[2023-07-15 09:29] VITALS: BP 102/66; PULSE 80; RESP 20; TEMP 36; O2SAT 98
== END 2023-07-15 10:08 | disposition home or self-care (01) ==
PROVIDERS: PCP Physician Assistant; Referring Provider Internal Medicine Gastroenterology; Visit Provider Internal Medicine Gastroenterology
PROC: 0DJD8ZZ Inspection of Lower Intestinal Tract, Via Natural or Artificial Opening Endoscopic (ICD-10-PCS; CPT 45378; principal; 2023-07-15 09:30)
DX: R93.3 Abnormal findings on diagnostic imaging of other parts of digestive tract (principal); K57.30 Diverticulosis of large intestine without perforation or abscess without bleeding; K64.2 Third degree hemorrhoids
CPT/HCPCS: 45378; J2704

== ENCOUNTER → 2024-09-09 10:54 | Outpatient (CLI) | payer OTHER, SELFPAY ==
[2024-09-09 12:24] LABS: Add Manual Diff / Slide Review NO; Basophils Absolute Auto 0 /uL (0-100); Basophils Percent Auto 0.4 % (0-2); Eosinophils Absolute Auto 0 /uL (0-450); Eosinophils Percent Auto 0.4 % (2-4); Hematocrit 41.2 % (36-46); Lymphocytes Absolute Auto 1400 /uL (1100-4500); Lymphocytes Percent Auto 18.8 % (25-40); Mean Corpuscular Hemoglobin 30.3 PG (26-34); Mean Corpuscular Volume 89.3 fL (80-100); Monocytes Absolute Auto 500 /uL (0-900); Monocytes Percent Auto 6.2 % (3-14); Neutrophils Absolute Auto 5700 /uL (1500-7000); Neutrophils Percent Auto 74.2 % (50-75); Platelet Count 241 X10^3/uL (150-400); Red Blood Cell Count 4.61 X10^6/uL (4.0-5.2); Red Cell Distribution Width 13.2 % (11.6-14.8); White Blood Cell Count 7.6 X10^3/uL (4.5-11.0)
[2024-09-09 12:56] LABS: HEMOLYSIS < 15 (0-50)
[2024-09-09 13:01] LABS: Iron 116 ug/dL (37-170)
[2024-09-09 13:07] LABS: Alanine Aminotransferase 23 IU/L (<35); Albumin 4.8 g/dL (3.5-5.0); Albumin Globulin Ratio 1.7 (1.0-2.8); Alkaline Phosphatase 50 U/L (38-126); Aspartate Aminotransferase 23 IU/L (14-36); BUN Creatinine Ratio 16.5 (6-22); Bilirubin Total 0.9 mg/dL (0.2-1.3); Blood Urea Nitrogen 13 mg/dL (7-17); Calcium 9.3 mg/dL (8.4-10.2); Carbon Dioxide 23 mmol/L (22-32); Chloride 106 mmol/L (98-107); Cholesterol 192 mg/dL (140-199); Estimated Glomerular Filt Rate > 60 mL/min (>60); Globulin 2.8 g/dL (1.7-4.1); Glucose 86 mg/dL (70-100); HDL Cholesterol 46 mg/dL (40-60); HEMOLYSIS < 15 (0-50); LDL Cholesterol Calculated 131 mg/dL (<100); Potassium 3.9 mmol/L (3.4-5.1); Sodium 138 mmol/L (137-145); Total Protein 7.6 g/dL (6.3-8.2); Triglycerides 77 mg/dL (35-150)
[2024-09-09 13:33] LABS: TSH w/ Reflex to FT4 3.19 uIU/mL (0.47-4.68)
[2024-09-09 15:08] LABS: Vitamin D 25 Hydroxy (D3) 45.9 ng/mL (30.0-100.0)
[2024-09-10 20:19] LABS: Percent Iron Saturation 32 % (15-50); Total Iron Binding Capacity 362 ug/dL (265-497); Transferrin 280 mg/dL (206-381)
[2024-09-13 04:51] LABS: Insulin Level Total 14.1 uIU/mL (2.6-24.9)
== END ==
PROVIDERS: PCP Family Medicine; Referring Provider Family Medicine; Visit Provider Family Medicine
DX: E66.9 Obesity, unspecified (principal); Z13.220 Encounter for screening for lipoid disorders; Z76.89 Persons encountering health services in other specified circumstances; Z86.39 Personal history of other endocrine, nutritional and metabolic disease; Z83.3 Family history of diabetes mellitus
CPT/HCPCS: 36415; 80053; 80061; 82306; 83036; 83525; 83540; 83550; 84443; 85025